=== PATIENT | male | born 1945 | race Caucasian/White ===

== ENCOUNTER 2016-12-27 17:11 | Inpatient (IN) | payer MEDICARE ==
[~2016-12-27 17:11] MED LIST: ISOVUE-370 76%-LOCM 1 ML ONE
[2016-12-27] MEDS ORDERED: Ondansetron HCl/PF 4 MG/2 ML Vial ONE (17:51)
[2016-12-27 18:35] LABS: #Basophils 0.1 thou/uL (0.0-0.2); #Eosinphils 0.2 thou/uL (0.0-0.7); #Lymphocytes 1.1 thou/uL (1.20-3.40); #Monocytes 0.7 thou/uL (0.11-0.59); #Neutrophils 5.2 thou/uL (1.40-6.50); %Basophils 0.8 % (0.0-1.0); %Eosinophils 2.7 % (0.0-10.0); %Lymphocytes 15.2 % (21.0-51.0); %Monocytes 9.1 % (0.0-10.0); Hematocrit 37.7 % (42.0-52.0); Mean Platelet Volume 7.9 fL (7.4-10.4); White Blood Cell (WBC) Count 7.2 thou/uL (4.8-10.8)
[2016-12-27 18:45] LABS: PTT 26.7 SEC (22.9-36.1); Prothrombin Time 13.9 SEC (12.0-14.7)
[2016-12-27 18:53] LABS: Lactic Acid - Sepsis 1.8 mmol/L (0.5-2.2)
--- NOTE | 2016-12-27 18:54 | RAD ---
FOUR VIEWS LEFT ELBOW: History: Fall, pain. Comparison: None. FINDINGS: No obvious joint effusion. No definite fracture. No cortical irregularity. Mild degenerative changes are noted. IMPRESSION: No definite fracture. POS: [facility]
[2016-12-27 19:00] LABS: ALT (SGPT) 17 U/L (8-55); AST (SGOT) 20 U/L (5-34); Alkaline Phosphatase 107 U/L (40-150); Anion Gap 11 mmol/L (10-20); BUN (Urea Nitrogen) 18 mg/dL (8.4-25.7); Bilirubin, Total 0.5 mg/dL (0.2-1.2); CK (CPK) 97 U/L (30-200); Calc. Creatinine Clearance 0 mL/min (70-130); Calcium 8.9 mg/dL (7.8-10.44); Carbon Dioxide 27 mmol/L (23-31); Chloride 106 mmol/L (98-107); Estimated GFR-MDRD 60; Globulin 3.6 g/dL (2.4-3.5); Lipase 43 U/L (8-78); Protein, Total 6.9 g/dL (5.8-8.1)
[2016-12-27 19:03] LABS: Troponin I Less than 0.010 ng/mL (< 0.028)
[2016-12-27 20:21] LABS: Bilirubin Negative (Negative); Blood, Urine Negative (Negative); Glucose, Urine (Dipstick) Negative (Negative); Ketone, Urine Negative (Negative); Nitrite Positive (Negative); Protein, Urine (Dipstick) Negative (Neg-Trace)
[2016-12-27 20:22] LABS: Bacteria/HPF 4+ HPF (None Seen); Hyaline Casts/LPF 7-10 HYALINE CAST LPF (0-3 Hyaline); Squamous Epithelial None Seen HPF (0-3)
--- NOTE | 2016-12-27 20:32 | RAD ---
CHEST TWO VIEWS: History: Status post fall from standing. Syncope. Comparison: 11-07-16 FINDINGS: Portable upright chest demonstrates a stable left sided transvenous pacemaker. There are stable ster notomy wires. Atherosclerosis of the aorta is noted. Normal cardiac silhouette. The pulmonary vessel s and hilum are normal. Costophrenic angles are clear. No masses or consolidation. Chronic changes i nvolving the distal left clavicle. No pneumothorax or osseous abnormalities. IMPRESSION: 1. Atherosclerosis. 2. No acute cardiopulmonary process. POS: [facility]
--- NOTE | 2016-12-27 20:59 | CT ---
NONCONTRAST HEAD CT: History: Fall from standing. Comparison: 08-25-16 Technique: Noncontrast head CT is performed from skull base to skull vertex. FINDINGS: There is a hematoma involving the posterior scalp near the vertex. Calvarium is intact. Adequate aer ation of the sinuses and mastoid air cells. Cavernous carotid atherosclerosis is noted. There is age appropriate atrophy. Cortical escalona white matter differentiation is preserved. Ventricle s and sulci are patent and symmetric. Stable configuration of the ventricular system. Stable hypoden sities with remote lacunar infarct involving the white matter as well as bilateral bibasilar ganglio n. Hyperdensity along the anterior aspect of the falx. Small parafalcine subdural hematoma is present. Small hyperdense focus on the medial right occipital lobe may represent a small hemorrhagic contusio n measuring 0.5 cm. Additional subtle hyperdensity on the cortex is noted. IMPRESSION: 1. Small anterior parafalcine subdural hematoma. 2. Small foci of parenchymal contusions in the right frontal lobe. The largest focus of attenuation measures 0.5 mm. 3. Posterior scalp hematoma. 4. Results of study discussed with Dr. Clarke 12-27-16 at 7:02 p.m. POS: [facility]
--- NOTE | 2016-12-27 21:11 | CT ---
CERVICAL SPINE CT WITHOUT CONTRAST: Comparison: 02-09-16 History: Patient fell from standing. Technique: Noncontrast cervical spine CT is performed in the axial plane. Reformatted images are sub mitted for interpretation. FINDINGS: There is no prevertebral soft tissue swelling. No epidural hematoma. Atherosclerosis of the carotid arteries is noted. Chronic change in lung apices noted. Upper mediastinum is unremarkable. There are varying degrees of central canal stenosis and foraminal narrowing on the basis of degenera tive change. Limited evaluation of the central canal and neural foramina due to technique. There is appropriate alignment of the lateral masses of C1 and C2, as well as the intraarticular fac ets. Odontoid process is intact. Straightening of the normal cervical lordosis is noted. Cervical spine vertebral body heights are ma intained. There is no fracture. There is incomplete segmentation of the C2 and C3 vertebral bodies. Stable degenerative change and stable anterolisthesis when compared to the prior exam. There appears to be fusion of the anterior right 1st and 2nd ribs. IMPRESSION: No cervical spine fracture. POS: [facility]
--- NOTE | 2016-12-27 21:56 | CT ---
CT ANGIOGRAM OF THE CHEST: History: Loss of balance, fall. Comparison: 08-25-16 Technique: CT angiogram of the chest was performed in the axial plane. 3D oblique and coronal reform atted images are submitted for interpretation. FINDINGS: Persistent opacification in the right lower lobe. Currently, the opacity measures 2.7 x 4.6 cm (prev iously measuring 3.3 x 4.5 cm). Additional patchy ground glass and linear opacities are noted. Trach ea and central bronchi are patent. No pneumothorax. There is a nonspecific nodule in the left upper lobe measuring 0.6 x 0.6 cm. No mediastinal mass, lymphadenopathy, or hematoma. Nonspecific right paratracheal lymph nodes. The t horacic aorta and abdominal aorta have an overall normal caliber. No periaortic fat stranding. Heart size is within normal limits. No significant pericardial fluid. Coronary artery calcifications are identified. Visualized upper solid organs are unremarkable. There are degenerative changes of the thoracic spine. There is adequate contrast opacification of the pulmonary arterial systems to the level of the segme ntal arteries. No filling defect to suggest thromboembolism. IMPRESSION: 1. No evidence of pulmonary artery embolism to the level of the segmental arteries. 2. Persistent opacification in the posterior aspect of the right lower lobe. Nonemergent pulmonary c onsultation and possible PET imaging is recommended. There is also a nonspecific 6 mm nodule in the left upper lobe. Code LN. POS: [facility]
[2016-12-27] MEDS ORDERED: Acetaminophen 500 MG TAB PO PRN (22:10)
[2016-12-27] MEDS ORDERED: Ondansetron HCl/PF 4 MG/2 ML Vial IVP PRN (22:11)
[2016-12-27] MEDS ORDERED: Ondansetron ODT 4 MG TAB PO PRN (22:11)
[2016-12-27] MEDS ORDERED: Dextrose 50% Abboject 50 ML SYRINGE SLOW IVP PRN (22:11)
[2016-12-27] MEDS ORDERED: Dextrose 5% in Water 1,000 ML IV PRN (22:11)
[2016-12-27] MEDS ORDERED: levETIRAcetam In NaCl (Iso-Os) 1,000 MG in Premix Bag 1 BAG IVPB SCH ×4 (22:15→23:00)
[2016-12-27] MEDS ORDERED: Labetalol HCl 100 MG/20 ML VIAL SLOW IVP PRN (22:16)
[2016-12-27] MEDS ORDERED: cefTRIAXone\\ROCEPHIN 1 GM in Sodium Chloride 0.9% 100 ML IVPB SCH (23:00)
[2016-12-28 01:07] VITALS: BMI 34.3
--- NOTE | 2016-12-28 03:20 | HP ---
DATE OF ADMISSION: 12/27/2016 ATTENDING PHYSICIAN: Dr. Marco Milner. TRAUMA ACTIVATION: Not applicable. HISTORY OF PRESENT ILLNESS: Mr. Porfirio Huff is a 71-year-old gentleman that presented to [facility] Emergency Room, status post fall. Per patient, he is amnestic of events. Per ER records, the pa tana was walking up some stairs when he lost his balance and fell. There is a question of syncope associated with this fall. Patient reportedly landed on his left side and hit his head. There was evidence of seizure-like activity, but there was no bowel or bladder incontinence. The patient awok e shortly after falling. At that time, he was alert and oriented. He was brought to the [facility] for further evaluation. He was found to have an intracerebral hemorrhage, along wit h a urinalysis suspicious for urinary tract infection. Of note, the patient is currently on a Z-Donavon per his PCP for upper respiratory infection. Neurosurgery was notified and Trauma Service was aske d to admit. Per patient, he has no history of seizure disorder. Upon my evaluation, the patient is alert and oriented x4. His GCS is 15. He has residual left-sided weakness from a past CVA, but no new focal deficits are noted. Patient has a chief complaint of headache. Otherwise, no complaints . ALLERGIES: SULFONAMIDE ANTIBIOTICS and TETRACYCLINE. 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 PAST SURGICAL HISTORY: Significant for CABG, left elbow repair, cholecystectomy, prostatectomy seco ndary to prostate cancer, and skin cancer removal. SOCIAL HISTORY: The patient resides at home with his . He ambulates with the use of a walker. He denies alcohol, tobacco, or illicit drug use. FAMILY HISTORY: Significant for coronary artery disease, multiple family members details unknown. REVIEW OF SYSTEMS: The patient endorses a history of chills, times weeks to months. Vomiting post- fall while in our emergency room, 2 weeks of blurred vision associated with dizziness and presyncope as well as constipation. He denies measured fevers, chest pain, shortness of breath, abdominal melani n, hematuria, dysuria, frequency or urgency, hematochezia or melena, as well as diarrhea. HOME MEDICATIONS: Include buspirone 50 mg b.i.d., gabapentin 300 mg q.i.d., fluoxetine 60 mg p.o. d aily, carvedilol 12.5 mg p.o. b.i.d., folic acid p.o. daily, furosemide 20 mg p.o. b.i.d., risperido ne 1 mg p.o. daily, atorvastatin 80 mg p.o. daily, Avodart 0.5 mg p.o. daily, methocarbamol 500 mg p .o. b.i.d., alfuzosin extended release 10 mg p.o. daily, aspirin 81 mg p.o. daily. PHYSICAL EXAMINATION: VITAL SIGNS: Blood pressure 162/82, pulse 67, respirations 18, O2 saturation 100% on 2 liters. GENERAL: Well-developed, well-nourished male, in no acute distress, resting in bed. HEAD: Normocephalic. He has a frontal contusion as well as a posterior occipital contusion. EYES: Pupils are PERRL. Extraocular movements are intact. NECK: Supple. Trachea is midline. C-collar has been removed and clinically cleared by the ER phys ician. PULMONARY: Atraumatic. Normal work of breathing. Symmetric rise. LUNGS: Lung sounds are diminished, but clear to auscultation bilaterally. CARDIOVASCULAR: Regular rate and rhythm, no obvious murmurs, rubs, or gallops. GASTROINTESTINAL: Soft, nontender, and nondistended. BACK EXAM: Being reported, it is being within normal limits. MUSCULOSKELETAL: Bilateral upper extremities within normal limits. Lower extremities within normal limits. NEUROLOGIC: GCS of 15. There is a very minor left-sided weakness in both extremities. No other fo hebert deficit noted. LABORATORY FINDINGS: WBC 7.2, hemoglobin 12.2, hematocrit 37.7, platelet count 214. INR is 1.1. S odium 140, potassium 3.9, chloride 106, carbon dioxide 27, BUN 18, creatinine 1.20, lactic acid is 1 .8, AST and ALT within normal limits. Troponin is less than 0.010. BNP is 430.5. Prolactin level 76.08. Urinalysis is significant for being positive for nitrites, moderate leukocyte esterase, and greater than 50/too numerous to count wbc's, 4+ bacteria along with 7 to 10 hyalin casts. RADIOGRAPHIC FINDINGS: CTA of the chest and thorax demonstrated no evidence of pulmonary artery emb olism to the level of segmental arteries. There is a persistent opacification in the posterior aspe ct of the right lower lobe along with a 6 mm nodule in the left upper lobe. CT of the C-spine was n egative for acute fracture or dislocation. CT of the brain was significant for small anterior paraf alcine subdural hematoma with small foci of parenchymal contusions in the right frontal lobe, the la rgest of which measures 0.5 mm the posterior scalp hematoma. Chest x-ray with cardiomegaly, no evid ence of acute cardiopulmonary process. There is an evidence of permanent pacemaker in place, elbow x-ray was negative for acute fracture or dislocation. ASSESSMENT: 1. Status post fall. 2. Questionable syncopal event. 3. Possible seizure. 4. Acute traumatic pain. 5. Probable urinary tract infection. 6. History of coronary artery disease. 7. History of arrhythmia, status post permanent pacemaker. 8. History of hypertension. 9. History of chronic kidney disease. 10. History of cerebrovascular accident with residual deficit. PLAN: 1. Admit to Trauma Services. 2. Frequent neuro checks. 3. Neurosurgery has been notified and is currently evaluating the patient. They plan for nonoperat capo management with repeat CT of the head in a.m. 4. N.p.o. for now. 5. Careful pain management given, need to monitor neuro status. 6. Keppra 1000 mg loading dose followed by 500 mg b.i.d. 7. Patient's last urinary tract infection was in 10/2016. At that time, it was enterococcus that w as resistant to both Levaquin and Cipro. We will start IV Rocephin and follow urine cultures. 8. Syncopal workup. 9. Gastritis and DVT prophylaxis as appropriate. 10. Trauma attending notified of admission.
--- NOTE | 2016-12-28 04:08 | CON ---
DATE OF CONSULTATION: 12/27/2016 This is a 50-minute initial patient consult, in which greater than 50% of the exam was spent in coun seling and coordinating the patient's care. The remainder of the exam was spent in review of the prince fajardo's medical record and appropriate imaging studies. CHIEF COMPLAINT: Status post fall with seizure-like activity and a small falcine subdural hematoma and right frontal ICH. HISTORY OF PRESENT ILLNESS: Mr. Huff is a pleasant 71-year-old male who presents to [facility] room after sustaining a fall. Apparently, the patient experienced seizure-like activity, in which he felt dizzy and preceeded to fall striking the back of his head. The patient currently comp lains of a headache in the bilateral parietal regions. He does not typically have headaches. Of no te, the patient does have a pacemaker for atrial fibrillation and was previously on Plavix and aspir in, however, has been off this since his last hospital admission in 10/2016. The patient also has a known prostate cancer, however, states that he has not had this evaluated in the past roughly 2 yea rs. The patient was found to have a UTI which also has caused some transient confusion. The patien whit currently lives at home with his who brought him in today. The patient also has a history of multiple CVAs with some residual left-sided weakness and he does use a cane for ambulation at home. Review of the patient's CT scan today shows a small right falcine subdural hematoma with a very sm all right frontal ICH. PHYSICAL EXAMINATION: The patient is awake, alert, and appropriate. He does appear to either sligh tly slower in his speech or has a slight speech impediment where he has difficulty pronouncing his h ours. His GCS currently is 15. He is able to correctly identify a pen and to determine that its pu rpose is to write and he appropriately defines the definition of an island. He does have residual t [id number] weakness in the left arm and leg, more significant perhaps in the leg than the arm. He currently has no pronator drift. His pupils are equal, round, and reactive bilaterally. He does h ave a scalp hematoma in the parietal region. He has no worrisome tenderness to palpation along the midline of the cervical, thoracic, and lumbar spines. IMPRESSION/DIAGNOSIS: Status post fall with a small right falcine subdural hematoma and small right intracerebral hemorrhage. PLAN: I have discussed the patient's case with Dr. Bernard. Our Trauma colleagues will admit the prince fajardo and Neurosurgery will consult. The patient's INR is currently 1.1 and his platelets are 214. We would like him to remain off any anticoagulants and antiplatelets. As a prophylactic measure an d with presumed seizure-like activity, we have started the patient on Keppra 1000 mg IV now with a m aintenance dose of Keppra 500 mg b.i.d. As the patient has a pacemaker in place, we will obtain a r epeat head CT in the morning with and without contrast to ensure that there is no metastatic disease in the brain. His systolic blood pressure should remain less than 150 and head of bed elevated at 30 degrees. This time, as a prophylactic measure, we have made him n.p.o. However, it is highly un likely that the patient will require any type of neurosurgical intervention. We will continue to fo llow the patient's neurologic exam. Otherwise, he is stable at this time. Please call with any damon ge in the patient's neurologic status.
[2016-12-28 04:55] LABS: #Eosinphils 0.2 thou/uL (0.0-0.7); #Lymphocytes 1.3 thou/uL (1.20-3.40); #Monocytes 0.7 thou/uL (0.11-0.59); #Neutrophils 7.3 thou/uL (1.40-6.50); %Basophils 0.4 % (0.0-1.0); %Eosinophils 2.4 % (0.0-10.0); %Lymphocytes 13.5 % (21.0-51.0); %Monocytes 7.2 % (0.0-10.0); Hematocrit 35.9 % (42.0-52.0); Mean Platelet Volume 8.3 fL (7.4-10.4); Red Blood Cell (RBC) Count 3.72 mill/uL (4.70-6.10); White Blood Cell (WBC) Count 9.6 thou/uL (4.8-10.8)
[2016-12-28 05:31] LABS: Anion Gap 9 mmol/L (10-20); BUN (Urea Nitrogen) 13 mg/dL (8.4-25.7); Calc. Creatinine Clearance 85 mL/min (70-130); Calcium 8.6 mg/dL (7.8-10.44); Carbon Dioxide 28 mmol/L (23-31); Chloride 107 mmol/L (98-107); Estimated GFR-MDRD 66; Magnesium 1.8 mg/dL (1.6-2.6); Phosphorus 2.9 mg/dL (2.3-4.7)
[2016-12-28] MEDS ORDERED: Magnesium Sulfate 3 GM in Sodium Chloride 0.9% 100 ML IVPB SCH (08:45)
[2016-12-28] MEDS ORDERED: FLU VACC TS2017-18 (>65YR) 0.5 ML SYRINGE IM ONE (09:00)
--- NOTE | 2016-12-28 09:09 | PRG ---
DATE OF SERVICE: 12/28/2016 This is a 30 minutes initial hospital visit note in which 30 minutes were spent in review of the staci ging record, evaluation, examination of the patient, formulation of a plan. Greater than 50% time w as spent on counseling on Mr. Porfirio Huff, date of 1945. CHIEF COMPLAINT: Acute subdural hematoma, status post fall with a first time seizure. HISTORY OF PRESENT ILLNESS: I reviewed the notes of my colleague Hunter Cano PA-C, and agree wi th its content. Mr. Huff is a 71-year-old man with a pacemaker. He is not on blood thinners. He has a history of stroke. He had a generalized tonic-clonic seizure by report yesterday and presente d with an elevated prolactin. His family did witness this. Head CT demonstrates a small amount of acute subdural hematoma in the region of the fall and cervical spine CT was negative. We have order ed a CT scan without and with contrast of the brain to evaluate for neoplastic process. Again the p atient cannot have an MRI due to a pacemaker. PHYSICAL EXAMINATION: On exam, the patient is alert and appropriate, follows commands without any f ocal deficits. He does appear a bit tremulous and already loaded him with antiepileptics and he has had no further seizure. IMPRESSION AND PLAN: We will arrange for CT today. I will recommend Neurology consultation given t he seizure. He is on Keppra. DIAGNOSES: 1. Seizure. 2. Acute subdural hematoma. 3. History of stroke. 4. Pacemaker dependent.
--- NOTE | 2016-12-28 09:54 | CT ---
HEAD CT WITH AND WITHOUT CONTRAST: Date: 12/28/16 Reference made to preceding head CT, noncontrast, 12/27/16. INDICATION: Recent fall. Abnormal hyperdensity demonstrated on noncontrast CT. FINDINGS: Precontrast imaging redemonstrates subdural hemorrhage, minimal in volume, along the anterior aspect of the interhemispheric falx. Redemonstration of blush of hyperdensity involving the medial right f rontal lobe and insinuating within medial right frontal sulci. No discernible postcontrast enhanceme nt of significance is seen. Redemonstration of multifocal cavitary lacunar infarctions in bilateral basal ganglia. There is mode rate chronic microvascular ischemic disease with associated ex vacuo dilatation of the ventricular s ystem. Focal prominence of right parietal scalp near the vertex is present. Decreased pneumatization of mastoid air cells, bilaterally, present. IMPRESSION: Redemonstration of extra-axial hyperdensity favoring subdural hemorrhage with component of adjacent mild subarachnoid hemorrhage and/or parenchymal contusion. No discernible enhancement to confirm dann or as the source of clinical concern; however, evaluation is limited by the residual acute hemorrhag e. Therefore, mandatory follow-up upon resolution of acute hemorrhage is necessary to exclude underl clyde pathology. CODE T. POS: [facility]
--- NOTE | 2016-12-28 11:16 | PRG ---
DATE OF SERVICE: 12/28/2016 SUBJECTIVE: Mr. Huff is awake and alert. Barnwell coma scale this morning is E4, V4, M6. He denie s any chest pain, syncope or dyspnea. He complains of headaches, but denies any nausea or vomiting. The patient is 1 day status post apparent fall following a near syncopal episode. He was noted on workup with intrafalcine subdural hematoma. Follow up CT scan of the brain today reveals stable in trafalcine subdural hematoma with no mass effects. The patient has a preexisting history of left up per lobe pulmonary nodule as well as an undetermined right lower lobe lesion. No previous workup of this abnormalities is on record. OBJECTIVE: VITAL SIGNS: This morning includes blood pressure 125/47, pulse 69, respiration rate 18, temperatur e 97.8 degrees Fahrenheit, oxygen saturation is 96% on 2 liters by nasal cannula oxygen. HEENT: Reveals normocephalic and atraumatic. Pupils are equal, round, and reactive to light and ac commodation. The patient has no jugular venous distention noted. HEART: Reveals regular rate and rhythm, no murmurs or gallops auscultated. CHEST: Clear to auscultation bilaterally. Breathing is regular and unlabored. ABDOMEN: Soft and obese with no tenderness to palpation. Liver and spleen are nonpalpable below co stal margins. NEUROLOGIC: Reveals no focal neurologic deficits present. PERTINENT LABORATORY DATA: Today includes CBC with 9600 white blood cells, hemoglobin and hematocri t are stable at 11.4 and 35.9 respectively. Platelet count is stable at 192,000. Metabolic profile : Sodium 140, potassium 4.1, chloride is 107, bicarbonate 28, BUN 13, creatinine is 1.10, glucose i s 94, magnesium 1.8, phosphorus is 2.9. IMPRESSION: 1. Post-admission day #01 status post ground level fall with acute traumatic intrafalcine subdural hematoma. 2. Status post post-traumatic seizure. 3. Left upper lobe pulmonary nodule as well as a right lower lobe pulmonary opacification of undete rmined etiology. PLAN: 1. Neurology consultation regarding the post-traumatic seizure activity. 2. We will obtain an MRI of the brain to rule out any neoplastic lesions as etiology of the seizure activity. We will also obtain a consultation from Pulmonary Medicine in consideration for possible biopsy of the pulmonary lesions. 3. Continue with physical and occupational therapy. 4. Speech Pathology evaluating the patient for swallow and cognition. Diet will be advanced follow ing recommendations from Speech Pathology. The above findings and plan discussed with the patient who indicates understanding of the informatio n given. I have answered his questions.
--- NOTE | 2016-12-28 11:27 | CON ---
DATE OF SERVICE: 12/28/2016 SERVICE: Pulmonary Medicine. HISTORY OF PRESENT ILLNESS: The patient is a 71-year-old white male with past medical history significant for an infiltrate in the right lower lobe that was previously identified in July. 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 He has residual left-sided weakness from these strokes. He has been in and out of the hospital here on multiple occasions. Recently he was discovered to have some degree of oropharyngeal dysphagia. Other way, he was in his usual state of health until roughly 3 days ago. He started feeling off, but is not able to really tell me what that meant. He had an abrupt onset of syncope. He does not remember the fall itself. There was not a mechanical vent so far as he knows. He struck his head on hitting the ground and has a contusion there. He also had a subdural hematoma and small cell foci of an intraparenchymal bruise. Otherwise, he returned to his usual state of health after the event occurred. There is a possibility that he had a seizure-type change. PAST MEDICAL HISTORY: 1. Coronary artery disease. 2. History of stroke. 3. Oropharyngeal dysphasia and left-sided weakness. 4. Chronic diastolic heart failure. 5. Obstructive sleep apnea. 6. COPD. 7. Chronic kidney disease, stage 3. 8. Dyslipidemia. 9. Hypertension. 10. Schizophrenia. 11. Peripheral vascular disease. PAST SURGICAL HISTORY: 1. Coronary artery bypass graft x3 vessels. 2. Cholecystectomy. 3. Prostatectomy. 4. Left elbow surgery repair. ALLERGIES: SULFA and TETRACYCLINE. MEDICATIONS: List of his inpatient medications was reviewed. There are no specific updates made at this time. SOCIAL HISTORY: Negative for current alcohol, tobacco or illicit drug use. He has a prior history of smoking, but quit roughly 10 years ago. He currently lives with his . FAMILY HISTORY: Noncontributory. REVIEW OF SYSTEMS: General, head, ears, eyes, nose, throat, cardiovascular, respiratory, GI, , musculoskeletal, neurologic and skin is negative except as mentioned in the HPI. PHYSICAL EXAMINATION: VITAL SIGNS: Afebrile, pulse 69, blood pressure 125/47, respirations 18, saturation 98% on 2 liters nasal cannula. GENERAL: Patient is awake, alert, in no apparent distress. LUNGS: Excellent air entry. No prolonged expiratory phase or wheezing is evident. HEART: Normal rate, regular. ABDOMEN: Soft, nontender, nondistended, bowel sounds positive. MUSCULOSKELETAL: No cyanosis or clubbing. There is trace pitting in the bilateral lower extremities. LABORATORY DATA: WBC 9.6, hemoglobin 11.4, platelets 192,000. INR 1.1. Basic metabolic profile and liver function studies are unremarkable. Magnesium, phosphorus, and lactate are normal. Lipase is also normal. Prolactin level is 76. IMAGIN. Chest x-ray demonstrates no acute cardiopulmonary abnormality. 2. CT of the brain demonstrates a subdural hematoma. There are also small foci of intraparenchymal hemorrhage/hematoma due to posterior scalp hematoma. 3. CT of the neck demonstrates no acute osseous abnormality or subluxation identified. 4. Elbow x-ray demonstrates no acute osseous abnormality. 5. CTA of the chest demonstrates a very small centrally located pulmonary nodule which is roughly 6 mm. There is also stable infiltrate in the posterior right lower lobe compared to 07/2016. 6. Repeat CT of the brain demonstrates no evidence of tumor on contrasted study , the hemorrhage changes and subdural hematoma are all stable. ASSESSMENT: 1. Subdural hematoma. 2. Syncope. 3. Seizure disorder, new onset. 4. History of stroke. 5. Pulmonary nodule. 6. Pulmonary mass vs infiltrate. PLAN: From my perspective, this infiltrate in the posterior region of the right lower lobe is roughly stable since July. I do think a sampling procedure is currently indicated given the patient's acute presentation. This will be followed up in the outpatient setting where PET scan vs serial monitoring can be considered. Given the location of the lesion, sampling would likely require percutaneous approach. Pulmonary Critical Care will continue to follow for the time being while patient remains inhouse. TRESA
--- NOTE | 2016-12-28 13:56 | RAD ---
EXAM: RIGHT HIP 2 VIEWS: HISTORY: Fall. Pain. COMPARISON: None. FINDINGS: There appears to be contrast in the urinary bladder. Contour of the right femoral head is maintaine d. Joint space is preserved. No fracture. IMPRESSION: No fracture. POS: [facility]
[2016-12-28] MEDS: Amoxicillin/Potassium Clav 500 MG TAB PO SCH (20:01)
[2016-12-29 05:10] LABS: #Basophils 0.1 thou/uL (0.0-0.2); #Eosinphils 0.4 thou/uL (0.0-0.7); #Lymphocytes 1.2 thou/uL (1.20-3.40); #Monocytes 0.7 thou/uL (0.11-0.59); #Neutrophils 6.5 thou/uL (1.40-6.50); %Basophils 0.9 % (0.0-1.0); %Eosinophils 4.4 % (0.0-10.0); %Lymphocytes 13.2 % (21.0-51.0); %Monocytes 8.1 % (0.0-10.0); Hematocrit 37.7 % (42.0-52.0); Mean Platelet Volume 7.9 fL (7.4-10.4); Red Blood Cell (RBC) Count 3.91 mill/uL (4.70-6.10); White Blood Cell (WBC) Count 8.8 thou/uL (4.8-10.8)
[2016-12-29 05:50] LABS: Anion Gap 14 mmol/L (10-20); BUN (Urea Nitrogen) 12 mg/dL (8.4-25.7); Calc. Creatinine Clearance 87 mL/min (70-130); Calcium 9.3 mg/dL (7.8-10.44); Carbon Dioxide 20 mmol/L (23-31); Chloride 108 mmol/L (98-107); Estimated GFR-MDRD 67; Magnesium 1.8 mg/dL (1.6-2.6); Phosphorus 2.5 mg/dL (2.3-4.7)
--- NOTE | 2016-12-29 06:45 | CON ---
DATE OF CONSULTATION: 12/28/2016 REFERRING PROVIDER: Mag Vaughn PA-C. REASON FOR CONSULTATION: Seizure. HISTORY OF PRESENT ILLNESS: Mr. Huff is a pleasant 71-year-old male who has been consult ed for evaluation of seizure-like episode. History is obtained from the patient as well as patient' s dictated H\T\P note. Apparently, the patient has no recollection of the events that took place on yesterday when they brought him to the hospital. He apparently was walking the flight of stairs an d suddenly lost balance and fell down. After he fell, he had an episode of syncope. There was also seizure type of activity noted with frothing at the mouth and jerking like episode; however, there was no loss of bowel or bladder incontinence noted. EMS was called in and he was brought to the [facility]. He was somewhat confused on arrival and he also did not recollect any of these e vents that took place during that time. He had a CT head without contrast done on arrival, which camacho d shown small anterior parafalcine subdural hematoma and parenchymal contusions in the right frontal lobe as well as posterior scalp hematoma. According to the patient, he has no prior history of sei zure disorder, no prior history of heart trauma or [employer] infection. He has no family history of seizu re disorder. He currently denies any headache, chest pain, palpitation, numbness, tingling, weaknes s, or difficulty with balance. He denies lightheadedness or dizziness. PAST MEDICAL HISTORY: Significant for hypertension, coronary artery disease, history of stroke, con gestive heart failure, obstructive sleep apnea, chronic kidney disease, dyslipidemia, peripheral vas cular disease, prostate cancer, and history of schizophrenia. PAST SURGICAL HISTORY: Significant for coronary artery bypass graft, left elbow repair, cholecystec abundio, prostatectomy secondary to prostate cancer and skin cancer removal. SOCIAL HISTORY: He denies smoking, alcohol use, or illicit drug use. He is . FAMILY HISTORY: Significant for coronary artery disease. REVIEW OF SYSTEMS: As mentioned in the HPI, otherwise negative. PHYSICAL EXAMINATION: VITAL SIGNS: Blood pressure of 126/53, pulse of 69, temperature of 98, respirations of 18, O2 sats of 96% on room air. GENERAL: Well-developed, well-nourished male sitting in a chair, in no apparent distress. RESPIRATORY: Clear to auscultation bilaterally. CARDIOVASCULAR: Regular rate and rhythm. NEUROLOGIC: Mental status: The patient is awake, alert, oriented x3. Speech and language: Fluent speech. Cranial nerves: Pupils are 3 mm and reactive. Visual luna are intact. Extraocular mus cles are intact. No nystagmus is noted. Face is symmetric. Tongue and uvula are midline. Motor e xam showed normal tone and bulk with a 5/5 strength in both upper and lower extremities. Sensory: Sensation is intact and symmetric. Deep tendon reflexes, 1-2+ reflexes in both upper and lower extr emities. Babinski: Plantar responses flexion bilaterally. Coordination intact to [id number] er and finger tapping bilaterally. LABORATORY DATA: Reviewed, which included CBC, BMP, urinalysis, which is significant for hemoglobin of 11.4, hematocrit of 35.9. Urinalysis showing positive nitrites, moderate leukocyte esterase, gr eater than 50 to too numerous to count WBCs and 4+ bacteria. IMAGING STUDIES: CT head without contrast was reviewed, the findings are as noted on the HPI section. IMPRESSION: 1. Subdural hematoma. 2. Syncope. 3. Generalized seizures. Mr. Huff is a pleasant 71-year-old male who presented with falling down episode followed by syncope and questionable seizure-like activity. At this time, I would recommend obtaining EEG fo r further evaluation. I agree with continuing him on Keppra 500 mg twice daily. This can be switch ed from IV to oral. The patient can be followed up with my clinic in 4 weeks post-discharge, no fur ther neurological workup needed from my standpoint. Thank you for consultation.
[2016-12-29] MEDS ORDERED: Magnesium Sulfate 3 GM in Sodium Chloride 0.9% 100 ML IVPB SCH (08:30)
--- NOTE | 2016-12-29 09:47 | PRG ---
DATE OF SERVICE: 12/29/2016 SERVICE: Pulmonary Medicine. INTERVAL HISTORY: The patient is doing fine from a cardiovascular and respiratory standpoint. His mentation is much improved today and he has less agitation when answering questions. There were no overnight events. He denies any difficulty breathing. PHYSICAL EXAMINATION: VITAL SIGNS: Afebrile, pulse 70, blood pressure 131/56, respirations 16, saturation 97% on 2 liters nasal cannula. GENERAL: The patient is awake, alert, no apparent distress. LUNGS: Excellent air entry. There is a mildly prolonged expiratory phase with rhonchi that predominately on the right. No wheezing or crackles are appreciated. HEART: Normal rate, regular. ABDOMEN: Soft, nontender, nondistended. Bowel sounds positive. MUSCULOSKELETAL: No cyanosis or clubbing. No pitting in the bilateral lower extremities. NEUROLOGIC: Grossly nonfocal. LABORATORY DATA: WBC 8.8, hemoglobin 12.0, platelets 215,000. Basic metabolic profile, magnesium, and phosphorus all within normal limits. Urine culture is growing Citrobacter. Blood cultures x2 are unremarkable. The Citrobacter is pansensitive. IMAGIN. Hip x-ray demonstrates no acute fracture. 2. Transthoracic echocardiogram demonstrates 40%-45% ejection fraction with diastolic dysfunction. Mild regurgitation of the pulmonary valve and dilation of the left atrium are identified. ASSESSMENT: 1. Chronic hypoxic respiratory failure. 2. Subdural hematoma. 3. Seizure, new onset. 4. Syncope. 5. History of stroke. 6. Pulmonary mass/infiltrate. 7. Pulmonary nodule. PLAN: The patient can follow up with Dr. Guallpa in the outpatient setting within 2-4 weeks to come up with a plan to investigate this infiltrate which is persisting but roughly stable since July. This may include sampling, serial CT chest, and/or PET scan. If biopsy is to be done, the transcutaneous route would be the most reliable. The patient has no further requirement for inpatient Pulmonary or Critical Care opinion. He is stable for transition to the neuro unit. As such, I will sign off. Please call with additional questions or concerns. TRESA
[2016-12-29] MEDS: levETIRAcetam 500 MG TAB PO SCH ×2 (10:12→23:10)
[2016-12-29] MEDS: Amoxicillin/Potassium Clav 500 MG TAB PO SCH ×2 (10:12→23:09)
--- NOTE | 2016-12-29 13:22 | PRG ---
DATE OF SERVICE: 12/29/2016 This is a 15 minute subsequent visit note in which 50 minutes were spent in review the imaging recor d, evaluation and examination of the patient, and formulation of a plan. Greater than 50% of the ti me was spent in counseling on Porfirio Huff. Mr. Huff certainly appears to be doing much better. He follows commands in all 4 extremities. No apparent neurological deficits. He tells me that he feels as if he is doing well. He has had no fu rther clinical seizure activity. I would recommend continued Keppra at 500 mg orally twice daily an d we deferred to our Neurology colleagues regarding the duration of that medication. It is my under standing that Dr. Kraus has seen the patient. I will sign off and arrange for followup with a repeat head CT in 1 month. I should note a head CT without and with contrast yesterday demonstrated no ev idence of neoplasm. I suspect seizure is likely due to his history of strokes. DIAGNOSIS: Acute subdural hematoma.
--- NOTE | 2016-12-29 17:55 | PRG ---
DATE OF SERVICE: 12/29/2016 SUBJECTIVE: Mr. Huff is awake and alert. He reports adequate pain control. He is tolerating diet , having normal bowel and urinary function. He has had no seizure disorders since this admission. X-ray of his right hip was obtained to evaluate the hip pain and this revealed no fractures or dislo cation. OBJECTIVE: VITAL SIGNS: Today includes blood pressure 146/61, pulse is 70, respirations 16, temperature is 98. 2 degrees Fahrenheit, oxygen saturation is 97% on 2 liters of nasal cannula oxygen. HEENT: Reveals normocephalic and atraumatic. HEART: Reveals regular rate and rhythm, no murmurs or gallops auscultated. CHEST: Clear to auscultation bilaterally. Breathing is regular and unlabored. ABDOMEN: Soft, nontender and nondistended. PERTINENT LABORATORY FINDINGS: Today includes CBC with 8800 white blood cells, hemoglobin 12.0, shalonda tocrit is 37.7, platelet count is 215,000. Metabolic profile: Sodium 138, potassium is 4.0, chloride is 108, bicarbonate 20, BUN 12, creatinin e is 1.08 and glucose is 92. Magnesium 1.8, phosphorus 2.5. IMPRESSION: 1. Status post ground-level fall following a syncopal episode. 2. Recent seizure disorder, but neurologically normal and no further seizure activities. 3. Acute hypomagnesemia. 4. Acute hypophosphatemia. PLAN: 1. Correct abnormal electrolytes. 2. The patient has remained hemodynamically and neurologically stable and will be transferred to g eneral floor today. We will continue with serial examinations. 3. We will ask PM\T\R to evaluate the patient in anticipation for discharge to inpatient rehabilita tion.
[2016-12-30] MEDS: levETIRAcetam 500 MG TAB PO SCH ×2 (08:17→20:55)
[2016-12-30] MEDS: Amoxicillin/Potassium Clav 500 MG TAB PO SCH ×2 (08:17→20:55)
--- NOTE | 2016-12-30 10:48 | PRG ---
DATE OF SERVICE: 12/30/2016 SUBJECTIVE: Mr. Huff is awake and alert. He reports no new problems today. He is tolerating a di et, having normal bowel and urinary function. He has had no seizures over the last 48 hours. OBJECTIVE: VITAL SIGNS: Today includes blood pressure 146/58, pulse 64, respirations 18, temperature 97.8 degr ees Fahrenheit, oxygen saturation 96% on 2 liters by nasal cannula oxygen. HEENT: Examination reveals normocephalic and atraumatic. His pupils are equal, round, and reactive to light and accommodation. NECK: He has no jugular venous distention noted. HEART: Reveals regular rate and rhythm, no murmurs or gallops auscultated. LUNGS: Clear to auscultation bilaterally. His breathing is regular and unlabored. ABDOMEN: Soft, nontender, nondistended. NEUROLOGIC: Examination reveals no focal deficits present. IMPRESSION: 1. Status post ground-level fall with traumatic brain injury. 2. Recent seizure activity with no recurrent seizure over the last 48 hours. PLAN: The patient has remained hemodynamically and neurologically stable and will be transferred to general floor where we will continue with serial physical and neurological examination.
[2016-12-31] MEDS: levETIRAcetam 500 MG TAB PO SCH (09:44)
[2016-12-31] MEDS: Amoxicillin/Potassium Clav 500 MG TAB PO SCH (09:44)
[2016-12-31 12:15] VITALS: BP 121/82; TEMP 97.5
--- NOTE | 2017-01-02 11:45 | EKG ---
Test Reason : FALL Blood Pressure : / mmHG Vent. Rate : 063 BPM Atrial Rate : 063 BPM P-R Int : 176 ms QRS Dur : 100 ms QT Int : 460 ms P-R-T Axes : 052 018 139 degrees QTc Int : 470 ms Normal sinus rhythm Inferior infarct , age undetermined Abnormal ECG Confirmed by LISANDRA HAMPTON, JOSÉ LUIS ([id number]), online editor DEVORA OJEDA ([id number]) on 01/02/2017 11:45:05 AM Referred By: LISANDRA Confirmed By:JOSÉ LUIS FRY MD
== END 2016-12-31 13:44 | DRG 83 ==
LOC: ERS 17:11 → IMCU/EMU 21:13 → SURG A 12-30 18:34
PROVIDERS: ADMIT Surgery; ATTEND Surgery
DX: S06.5X9A Traumatic subdural hemorrhage with loss of consciousness of unspecified duration, initial encounter (principal); J96.11 Chronic respiratory failure with hypoxia; I13.0 Hypertensive heart and chronic kidney disease with heart failure and stage 1 through stage 4 chronic kidney disease, or unspecified chronic kidney disease; I50.32 Chronic diastolic (congestive) heart failure; E83.42 Hypomagnesemia; N39.0 Urinary tract infection, site not specified; R40.2142 Coma scale, eyes open, spontaneous, at arrival to emergency department; R40.2362 Coma scale, best motor response, obeys commands, at arrival to emergency department; R40.2242 Coma scale, best verbal response, confused conversation, at arrival to emergency department; Z88.1 Allergy status to other antibiotic agents; Z88.2 Allergy status to sulfonamides; Z88.8 Allergy status to other drugs, medicaments and biological substances; N18.3 Chronic kidney disease, stage 3 (moderate); Z85.46 Personal history of malignant neoplasm of prostate; Z95.1 Presence of aortocoronary bypass graft; Z95.0 Presence of cardiac pacemaker; G89.11 Acute pain due to trauma; E83.39 Other disorders of phosphorus metabolism; G40.909 Epilepsy, unspecified, not intractable, without status epilepticus; R91.1 Solitary pulmonary nodule; R91.8 Other nonspecific abnormal finding of lung field; S00.03XA Contusion of scalp, initial encounter; J44.9 Chronic obstructive pulmonary disease, unspecified
CPT/HCPCS: 36415; 51701; 70450; 70470; 71010; 71275; 72125; 80048; 80053; 81003; 81015; 82553; 83605; 83690; 83735; 83880; 84100; 84146; 84484; 85025; 85379; 85610; 85730; 87040; 87077; 87086; 87186; 93005; 93306; 95816; 95819; 96361; 96365; 96366; 96375; G0390; G8978-GP-CN; G8979-GP-CK; G8987-GO-CM; G8988-GO-CK; G8996-GN-CJ; G8997-GN-CI; J0360; J1953; J1956; J2405; J3475; J7050

== ENCOUNTER 2017-01-15 19:23 | Inpatient (IN) | payer MEDICARE, OTHER ==
[2017-01-15 20:33] LABS: #Basophils 0.1 thou/uL (0.0-0.2); #Eosinphils 0.4 thou/uL (0.0-0.7); #Lymphocytes 0.9 thou/uL (1.20-3.40); #Monocytes 0.8 thou/uL (0.11-0.59); #Neutrophils 5.4 thou/uL (1.40-6.50); %Basophils 0.8 % (0.0-1.0); %Eosinophils 5.3 % (0.0-10.0); %Lymphocytes 12.3 % (21.0-51.0); Hematocrit 38.7 % (42.0-52.0); Mean Platelet Volume 8.3 fL (7.4-10.4); Red Blood Cell (RBC) Count 4.08 mill/uL (4.70-6.10); White Blood Cell (WBC) Count 7.6 thou/uL (4.8-10.8)
[2017-01-15 20:40] LABS: PTT 29.3 SEC (22.9-36.1); Prothrombin Time 13.7 SEC (12.0-14.7)
[2017-01-15 20:58] LABS: ALT (SGPT) 19 U/L (8-55); AST (SGOT) 20 U/L (5-34); Alkaline Phosphatase 138 U/L (40-150); Anion Gap 16 mmol/L (10-20); BUN (Urea Nitrogen) 26 mg/dL (8.4-25.7); Bilirubin, Total 0.5 mg/dL (0.2-1.2); CK (CPK) 53 U/L (30-200); Calc. Creatinine Clearance 0 mL/min (70-130); Calcium 9.8 mg/dL (7.8-10.44); Carbon Dioxide 25 mmol/L (23-31); Chloride 105 mmol/L (98-107); Estimated GFR-MDRD 47; Globulin 4.1 g/dL (2.4-3.5); Protein, Total 7.7 g/dL (5.8-8.1)
[2017-01-15 21:01] LABS: Troponin I Less than 0.010 ng/mL (< 0.028)
[2017-01-15 21:13] LABS: Lactic Acid - Sepsis 1.4 mmol/L (0.5-2.2)
--- NOTE | 2017-01-15 22:25 | RAD ---
PORTABLE CHEST: 01/15/17 COMPARISON: 12/27/16 study. HISTORY: Cough. Heart size appears slightly enlarged. Postop sternotomy change and pacemaker are noted. The lungs s how chronic appearing change. No confluent infiltrative process. IMPRESSION: Cardiomegaly with chronic appearing lung change. POS: [facility]
--- NOTE | 2017-01-15 23:12 | CT ---
CT OF BRAIN PERFORMED WITHOUT CONTRAST ENHANCEMENT: 01/15/17 COMPARISON: 12/27/16 study. HISTORY: Lower extremity weakness. There is generalized ventricular and sulcal prominence. Decreased attenuation to the periventricular white matter. This is consistent with some chronic white matter change. There is no signs of intrac erebral hemorrhage or extra-axial fluid collections. The parafalcine subdural hematoma has resolved. IMPRESSION: Atrophy of chronic white matter change. No acute intracranial abnormalities. POS: [facility]
--- NOTE | 2017-01-15 23:55 | CT ---
CT ABDOMEN AND PELVIS PERFORMED WITH CONTRAST ENHANCEMENT: 01/15/17 HISTORY: Abdominal pain. The lung bases show slightly more focal area of consolidation in the right base with what appears to be somewhat loculated fluid in this area. If there is any reason to suspect pulmonary embolus, then a CT angio of the chest would be recommended. This has some features similar to a Solo's hump. The liver, spleen, and pancreas regions appear unremarkable. The gallbladder has been removed. The right and left adrenal glands and right and left kidneys are normal in size. Hypodensity involvi ng the left kidney is statistically most likely a cyst. There is cortical thinning involving both ki dneys. There is no significant periaortic or mesenteric adenopathy. There is a 3.4 cm infrarenal abdominal aortic aneurysm present. CT OF PELVIS PERFORMED WITH CONTRAST ENHANCEMENT: There is an inguinal hernia which contains nondilated sigmoid colon. There is a tiny fat containing paraumbilical hernia. The appendix region appears unremarkable. There is what appears to be some sut ure material in the terminal ileum region. The cecum itself appears to be directed more cephalad. IMPRESSION: 1. Focal area of pleural based consolidation right lung base as discussed above. 2. Nonobstructed left inguinal hernia. 3. 3.4 cm infrarenal abdominal aortic aneurysm. Other findings as noted above. 4. Diffuse bony demineralization. There appears to be some loss of vertebral body height of vania e of the lumbar and lower thoracic vertebral bodies. POS: [facility]
[2017-01-16 00:45] LABS: Bilirubin Negative (Negative); Blood, Urine Negative (Negative); Glucose, Urine (Dipstick) Negative (Negative); Ketone, Urine Negative (Negative); Nitrite Negative (Negative); Protein, Urine (Dipstick) Negative (Neg-Trace)
[2017-01-16 02:55] LABS: Troponin I 0.014 ng/mL (< 0.028)
[2017-01-16 05:52] LABS: Troponin I 0.013 ng/mL (< 0.028)
[2017-01-16] MEDS ORDERED: Ondansetron HCl/PF 4 MG/2 ML Vial IVP PRN ×2 (08:07→10:51)
[2017-01-16] MEDS ORDERED: Acetaminophen 325 MG TAB PO PRN (08:07)
[2017-01-16] MEDS ORDERED: Ondansetron ODT 4 MG TAB SL PRN (08:07)
[2017-01-16] MEDS ORDERED: Sodium Chloride 0.45% 1,000 ML IV SCH (08:15)
[2017-01-16 09:06] LABS: Troponin I 0.018 ng/mL (< 0.028)
[2017-01-16] MEDS ORDERED: Ondansetron ODT 4 MG TAB PO PRN (10:51)
[2017-01-16] MEDS ORDERED: hydrALAZINE 20 MG/ML VIAL SLOW IVP PRN (10:51)
[2017-01-16] MEDS ORDERED: Acetaminophen 500 MG TAB PO PRN (10:51)
[2017-01-16] MEDS: Sodium Chloride 0.9% 1,000 ML IV SCH (11:54)
--- NOTE | 2017-01-16 12:36 | ULT ---
CAROTID ULTRASOUND WITH CHISHOLM SCALE AND DOPPLER DUPLEX COLOR FLOW IMAGING SPECTRAL ANALYSIS PERFORMED: CLINICAL INDICATION: CVA. FINDINGS: There is mild scattered atherosclerotic calcification bilaterally of the carotid arteries with intim al thickening. PEAK SYSTOLIC VELOCITY (CM/S): Right CCA 103 Left CCA 118 Right ICA 87 Left ICA 95 There is antegrade flow within the visualized bilateral vertebral arteries. IMPRESSION: 1. No hemodynamically significant stenosis of the right internal carotid artery. 2. No hemodynamically significant stenosis of the left internal carotid artery. POS: [facility]
--- NOTE | 2017-01-16 15:01 | HP ---
DATE OF ADMISSION: 01/16/2017 PRIMARY CARE PROVIDER: Dr. Siva Reyna. CHIEF COMPLAINT: General weakness and inability to move the feet. HISTORY OF PRESENT ILLNESS: This is a 71-year-old male who presented to [facility] by EMS transport after developing increasing weakness and inability to move his fee t or walk at home. The patient states he had been using a walker to ambulate at home after a recent admission to [facility] and rehabilitation status post mechanical fall with small subdural he matoma and general deconditioning. The patient was admitted to [facility] in the early part of 12/2016 status post mechanical fall and questionable seizure-like activity with c losed head injury. The patient was given general supportive measures during the admission without s pecific surgical intervention required. The patient was placed on Keppra 500 mg b.i.d. after concer n for possible seizure-like activity. The patient was evaluated by the Neurology Service during thi s admission with recommendations for supportive management, ongoing physical and occupational therap y as well as Keppra. The patient apparently returned home and has been receiving Home Health Servic es approximately 3 times per week including physical therapy. The patient states he has been using a rolling walker for ambulation, but it remains weak and requiring assistance with activities of elizabeth ly living. Patient states that after using his rolling walker to get into his home, he was unable t o move his lower extremities with any specific coordination. The patient also noted difficulty with speech with garbled words. The patient was also noted with generalized weakness and shortness of b reath. Due to the constellation of symptoms, the patient was brought to the emergency room for eval uation. The patient denied any subsequent falls or head injury since the initial admission in early 12/2016. The patient denied any specific fever, chills or dysuria. The patient underwent general evaluation in the emergency room including CT imaging of the brain showing no acute intracranial pro cess. Evidence of resolution of the previous subdural hematoma noted. The patient also underwent e valuation including CT of the abdomen and pelvis after some complaints of abdominal pain and discomf ort. The patient was noted with consolidation of the right lung base concerning for pneumonia/infil trate. No other acute process was identified in the intraabdominal space. The patient received IV Levaquin 750 mg x1 dose in addition to intravenous normal saline x1 liter. The patient was transfer red to the Stroke Unit for further evaluation. PAST MEDICAL HISTORY: 1. Recurrent falls with closed head injury on 12/2016. 2. Coronary artery disease. 3. 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 4. Chronic congestive heart failure with ejection fraction of 40%-45%. 5. Obstructive sleep apnea with home CPAP. 6. Chronic kidney disease stage 2-3. 7. Dyslipidemia. 8. History of schizophrenia. 9. Peripheral vascular disease. 10. History of prostate cancer. 11. Status post subdural hematoma, status post mechanical fall with closed head injury. 12. History of pneumonia in 07/2016. 13. Chronic deconditioning. PAST SURGICAL HISTORY: 1. Status post coronary artery bypass grafting. 2. Status post left elbow repair. 3. Status post cholecystectomy. 4. Status post prostatectomy. 5. Status post skin cancer removal. CURRENT MEDICATIONS: 1. Lipitor 80 mg p.o. at bedtime. 2. Carvedilol 12.5 mg p.o. b.i.d. 3. Prozac 60 mg p.o. daily. 4. Finasteride 5 mg one tablet p.o. daily. 5. Lasix 20 mg 1 tablet p.o. daily. 6. Gabapentin 300 mg p.o. b.i.d. 7. Keppra 500 mg p.o. b.i.d. 8. Lisinopril 5 mg p.o. daily. 9. Flomax 0.4 mg p.o. b.i.d. 10. BuSpar 5 mg p.o. b.i.d. 11. Risperdal 1 mg p.o. at bedtime. ALLERGIES: SULFA and TETRACYCLINE. FAMILY HISTORY: Coronary artery disease in multiple family members. SOCIAL HISTORY: Patient is , residing in the [place], [place] area. No current alcohol, tobacco or illicit drug use. Remote history of tobacco use. [employer] , receiving health care through [facility]. Ambulates with a rolling walker with history of repetitive falls. REVIEW OF SYSTEMS: The following complete review of systems was negative, unless otherwise mentione d in the HPI or below: Constitutional: Weight loss or gain, ability to conduct usual activities. Skin: Rash, itching. Eyes: Double vision, pain. ENT/Mouth: Nose bleeding, neck stiffness, pain, tenderness. Cardiovascular: Palpitations, dyspnea on exertion, orthopnea. Respiratory: Shortness of breath, wheezing, cough, hemoptysis, fever or night sweats. Gastrointestinal: Poor appetite, abdominal pain, heartburn, nausea, vomiting, constipation, or diar william. Genitourinary: Urgency, frequency, dysuria, nocturia. Musculoskeletal: Pain, swelling. Neurologic/Psychiatric: Anxiety, depression. Allergy/Immunologic: Skin rash, bleeding tendency. Otherwise negative except as stated per HPI. PHYSICAL EXAMINATION: VITAL SIGNS: Currently, blood pressure 140/67, pulse 67, respiratory rate 16, temperature 97.7 degr ees Fahrenheit, and O2 saturation 92% on room air. GENERAL APPEARANCE: This is a 71-year-old male, alert and oriented x3, pleasant, in no ac renetta distress. HEENT: Pupils are equal, round, and reactive to light and accommodation. Extraocular muscles are i ntact. No scleral icterus, no conjunctival injection. Nares patent. OP is clear. Teeth in fair r epair. Left facial asymmetry noted. NECK: Supple, no cervical adenopathy, no thyromegaly, no carotid bruits, no JVD appreciated. Cervi hebert spine with full active and passive range of motion. No meningeal signs appreciated. CHEST: Diminished breath sounds in the bases bilaterally. CARDIOVASCULAR: S1 and S2 with 1/6 systolic ejection murmur in the left upper sternal border. ABDOMEN: Obese, soft, nontender, and nondistended. Bowel sounds are positive in all four quadrants . There is no hepatosplenomegaly, no abdominal bruits, no rebound or guarding appreciated. EXTREMITIES: Warm and dry with fair turgor. No clubbing, cyanosis or asymmetric edema appreciated. Pulses palpable distally at the dorsalis pedis, posterior tibial, and popliteal arteries bilateral ly. Capillary refill less than 2 seconds. NEUROLOGIC: Left facial asymmetry. Expressive aphasia. Muscle strength 3-4/5 in the upper extremi ties, 2/5 in the lower extremities. Patient not observed ambulatory during this exam. PERTINENT LABORATORY DATA AND X-RAY FINDINGS: Sodium 141, potassium 4.5, chloride 105, CO2 25, BUN 26, creatinine 1.47 with estimated GFR of 47, glucose 84, lactic acid level 1.4, magnesium 2.0, and calcium 9.8. LFTs within normal limits. BNP 301, previously noted 431 on 12/27/2016. Lipase 49. TSH 1.02. CBC showed white blood cell count of 7.6, hemoglobin 13, hematocrit 39, MCV 95, platelet count 180. Urinalysis shows specific gravity 1.053, otherwise negative. Blood cultures x2 from showed no growth to date. Portable chest x-ray dated 01/15/2017 showed cardiomegaly with ch ronic lung changes. CT of the brain without contrast dated 01/15/2017 showed chronic ischemic white matter changes without acute process. Parafalcine subdural hematoma, resolved. CT of the abdomen and pelvis dated 01/15/2017 showed consolidation in the right lung base. Nonobstructive left inguin al hernia. A 3.4 cm infrarenal abdominal aortic aneurysm, stable. EKG dated 01/15/2017 by my inter pretation shows sinus mechanism with heart rates in the 60s. Attenuated R waves noted in the latera l precordial leads. Normal axis. No acute ST-T wave changes appreciated. ASSESSMENT AND PLAN: 1. Question of ischemic cerebrovascular accident versus transient ischemic attack. The patient lisset l be admitted to the Stroke Unit. We will continue general stroke protocol. MRI of the brain unabl e to be obtained due to pacemaker placement. We will consult Neurology Service for any further nevaeh mmendations. Continue aspirin 325 mg daily with additional Lipitor 80 mg p.o. at bedtime. Check ca rotid Doppler study. Recent 2D transthoracic echocardiogram performed 12/29/2016 showed ejection fr action of 40%-45% with mild mitral regurgitation and diastolic dysfunction. Obtain PT, OT, and spee ch therapy evaluation. 2. Dysarthria. Suspect chronic component in addition to potential acute component. See #1 above. 3. Question of right lower lobe pneumonia. No specific leukocytosis or fever documented. We will continue empiric antibiotic coverage with Levaquin 500 mg IV q.24 hours. General pulmonary supporti ve measures. Consider incentive spirometer. 4. Acute kidney injury secondary to dehydration. We will continue intravenous normal saline at 75 mL per hour. Avoid nephrotoxic agents and contrast media. Repeat creatinine in the a.m. 5. History of falls, status post closed head injury with subdural hematoma. Stable currently. No current evidence of persistent subdural hematoma by CT imaging of the brain. PT and OT evaluation. 6. Acute kidney injury on chronic kidney disease stage 2-3. We will continue intravenous normal sa line at 75 mL per hour. 7. Deconditioning. PT, OT evaluation. Fall risk precautions. 8. Prophylaxis. Sequential compression devices while in bed. Pepcid 20 mg p.o. b.i.d. 9. Code status is FULL. Surrogate medical decision maker is patient's spouse. We will obtain pall iative care consultation due to multiple comorbid status.
[2017-01-16] MEDS ORDERED: Atorvastatin Calcium 40 MG TAB PO SCH (21:00)
[2017-01-16] MEDS: Famotidine 20 MG TAB PO SCH (22:01)
[2017-01-16] MEDS: risperiDONE 1 MG TAB PO SCH (22:02)
[2017-01-16] MEDS: levETIRAcetam 500 MG TAB PO SCH (22:02)
[2017-01-16] MEDS: Tamsulosin HCl 0.4 MG CAP PO SCH (22:02)
[2017-01-16] MEDS: Atorvastatin Calcium 40 MG TAB PO SCH (22:02)
[2017-01-16] MEDS: busPIRone HCl 5 MG TAB PO SCH (22:03)
[2017-01-16] MEDS: Gabapentin 300 MG CAP PO SCH (22:03)
[2017-01-16] MEDS: Carvedilol 6.25 MG TAB PO SCH (22:03)
--- NOTE | 2017-01-16 22:55 | CON ---
DATE OF CONSULTATION: 01/16/2017 REFERRING PHYSICIAN: Hospitalist Service. Mr. Huff is a 71-year-old man who was recently seen by Neurology and thought to have suffered a sei zure. He started on Keppra. He had subdural hematoma secondary to trauma. He went to rehab and th en on to home; however, he has been getting around with the use of a walker. He reports that he fel t like he could not get his legs to move and his son call for help. He was brought to the hospital for evaluation. CT of the brain did not show any acute changes. Carotid ultrasound did not show an y stenosis. He has had a documented blood pressure 110/50 on lying down. His exam at this point is nonfocal. He moves a bit slowly, but I do not see any asymmetries to suggest a new stroke. I am a bit suspicious that he might have some orthostatic hypotension this making difficult for him to wal k. I would suggest that he check orthostatic blood pressures and have physical therapy to assess hi s gait.
[2017-01-17] MEDS: Sodium Chloride 0.9% 1,000 ML IV SCH (01:51)
[2017-01-17 05:18] LABS: Anion Gap 9 mmol/L (10-20); BUN (Urea Nitrogen) 14 mg/dL (8.4-25.7); Calc. Creatinine Clearance 86 mL/min (70-130); Calcium 9.1 mg/dL (7.8-10.44); Carbon Dioxide 27 mmol/L (23-31); Chloride 107 mmol/L (98-107); Cholesterol 125 mg/dl (< 200 Desired); Estimated GFR-MDRD 68; LDL Cholesterol, Calculated 71 mg/dL
[2017-01-17 05:30] LABS: Hematocrit 34.1 % (42.0-52.0); Mean Platelet Volume 8.2 fL (7.4-10.4); Neutrophil 63 % (42-75); Red Blood Cell (RBC) Count 3.58 mill/uL (4.70-6.10); White Blood Cell (WBC) Count 6.2 thou/uL (4.8-10.8)
[2017-01-17] MEDS: Finasteride 5 MG TAB PO SCH (08:15)
[2017-01-17] MEDS: Carvedilol 6.25 MG TAB PO SCH ×2 (08:16→20:11)
[2017-01-17] MEDS: FLUoxetine HCl 20 MG CAP PO SCH (08:19)
[2017-01-17] MEDS: Gabapentin 300 MG CAP PO SCH ×2 (08:20→20:15)
[2017-01-17] MEDS: Famotidine 20 MG TAB PO SCH ×2 (08:20→20:11)
[2017-01-17] MEDS: Tamsulosin HCl 0.4 MG CAP PO SCH ×2 (08:20→20:12)
[2017-01-17] MEDS: levETIRAcetam 500 MG TAB PO SCH ×2 (08:20→20:11)
[2017-01-17] MEDS: busPIRone HCl 5 MG TAB PO SCH ×2 (08:20→20:10)
[2017-01-17] MEDS: Aspirin 325 mg Enteric Coated Tablet PO SCH (08:20)
--- NOTE | 2017-01-17 12:04 | PDOC.PN ---
- Subjective Encounter Start Date: 01/17/17 Encounter Start Time: 12:03 Patient seen and examined. No new complaints. No overnight events. very sleepy and tired today. had PT this am. No fever or chills. weakness better. - Objective Resuscitation Status: Resuscitation Status FULL:Full Resuscitation MAR Reviewed: Yes Vital Signs & Weight: Vital Signs (12 hours) Temp Pulse Resp BP BP Pulse Ox 01/17/17 08:16 159/60 H 01/17/17 08:10 97.7 F 61 20 01/17/17 07:38 97.7 F 61 20 135/54 L 97 01/17/17 04:00 97.5 F L 60 18 137/62 94 L Weight Weight 214 lb 3.2 oz I&O: 01/16/17 01/17/17 01/18/17 06:59 06:59 06:59 Output Total 950 Balance -950 Result Diagrams: 01/17/17 04:26 01/17/17 04:26 Phys Exam - Physical Examination Constitutional: NAD HEENT: sclera anicteric Neck: supple Respiratory: no wheezing, no rales Cardiovascular: RRR Gastrointestinal: soft Musculoskeletal: no edema Neurological: non-focal Psychiatric: normal affect, A&O x 3 Skin: no rash Dx/Plan (1) BPH (benign prostatic hyperplasia) Code(s): N40.0 - BENIGN PROSTATIC HYPERPLASIA WITHOUT LOWER URINRY TRACT SYMP Status: Chronic (2) RAPHAEL (acute kidney injury) Code(s): N17.9 - ACUTE KIDNEY FAILURE, UNSPECIFIED Status: Acute (3) Altered mental status Code(s): R41.82 - ALTERED MENTAL STATUS, UNSPECIFIED Status: Acute (4) Fall Code(s): W19.XXXA - UNSPECIFIED FALL, INITIAL ENCOUNTER Status: Acute (5) TIA (transient ischemic attack) Status: Acute (6) CAD (coronary artery disease) Code(s): I25.10 - ATHSCL HEART DISEASE OF [place] CORONARY ARTERY W/O ANG PCTRS Status: Chronic Qualifiers: (7) CKD (chronic kidney disease), stage III Code(s): N18.3 - CHRONIC KIDNEY DISEASE, STAGE 3 (MODERATE) Status: Chronic (8) HLD (hyperlipidemia) Code(s): E78.5 - HYPERLIPIDEMIA, UNSPECIFIED Status: Chronic Qualifiers: (9) HTN (hypertension) Code(s): I10 - ESSENTIAL (PRIMARY) HYPERTENSION Status: Chronic Qualifiers: (10) Pneumonia Code(s): J18.9 - PNEUMONIA, UNSPECIFIED ORGANISM Status: Acute - Plan cont current plan of care, continue antibiotics, PT/OT, DVT proph w/SCDs * . continue levaquin. will stop IV fluids continue PT f/u with neuro recs. AM labs.
[2017-01-17 12:48] LABS: ALT (SGPT) 17 U/L (8-55); AST (SGOT) 24 U/L (5-34); Alkaline Phosphatase 107 U/L (40-150); Anion Gap 9 mmol/L (10-20); BUN (Urea Nitrogen) 13 mg/dL (8.4-25.7); Bilirubin, Total 0.4 mg/dL (0.2-1.2); Calc. Creatinine Clearance 85 mL/min (70-130); Calcium 9.2 mg/dL (7.8-10.44); Carbon Dioxide 26 mmol/L (23-31); Chloride 108 mmol/L (98-107); Estimated GFR-MDRD 67; Globulin 3.5 g/dL (2.4-3.5); Protein, Total 6.5 g/dL (5.8-8.1)
--- NOTE | 2017-01-17 12:56 | CT ---
HEAD CT NONCONTRAST: COMPARISON: 01/15/17. INDICATION: Drowsiness. FINDINGS: There is multifocal white matter hypoattenuation again demonstrated compatible with moderate chronic microvascular ischemic disease with superimposed remote lacunar infarctions of each basal ganglia a gain seen. No intracranial hemorrhage, mass effect, or midline shift. Redemonstration of prominent ventricular system. There is scattered paranasal sinus mucosal thickening. IMPRESSION: 1. Redemonstration of multifocal white matter hypoattenuation and superimposed remote cavitary lacu robbie infarctions. 2. No acute intracranial hemorrhage or mass effect. POS: KRISTEN
[2017-01-17 13:08] LABS: Oxyhemoglobin 94.1 % (94.0-97.0)
[2017-01-17 13:09] LABS: Mode ROOM AIR; Modified Allen's Test POSITIVE; Sodium 142 mmol/L (135-148)
[2017-01-17] MEDS: Atorvastatin Calcium 40 MG TAB PO SCH (20:10)
[2017-01-17] MEDS: risperiDONE 1 MG TAB PO SCH (20:12)
[2017-01-17] MEDS ORDERED: risperiDONE 1 MG TAB PO SCH (21:00)
[2017-01-18 05:41] LABS: Anion Gap 8 mmol/L (10-20); BUN (Urea Nitrogen) 12 mg/dL (8.4-25.7); Calc. Creatinine Clearance 84 mL/min (70-130); Carbon Dioxide 28 mmol/L (23-31); Chloride 107 mmol/L (98-107); Estimated GFR-MDRD 67
[2017-01-18 12:15] VITALS: BMI 30.2
--- NOTE | 2017-01-18 12:46 | PDOC.PN ---
- Subjective Encounter Start Date: 01/18/17 Encounter Start Time: 12:43 Patient seen and examined. No new complaints. No overnight events. more awake this afternoon. at bedside. was sleepy this am. - Objective Resuscitation Status: Resuscitation Status FULL:Full Resuscitation MAR Reviewed: Yes Vital Signs & Weight: Vital Signs (12 hours) Temp Pulse Pulse Resp BP BP BP 01/18/17 08:53 58 L 138/58 L 01/18/17 08:00 97.8 F 61 20 01/18/17 07:26 97.8 F 61 20 141/63 H 01/18/17 04:32 98.4 F 60 20 141/57 H Pulse Ox 01/18/17 08:53 01/18/17 08:00 93 L 01/18/17 07:26 93 L 01/18/17 04:32 94 L Weight Admit Weight 214 lb 3.2 oz Weight 210 lb 14.4 oz I&O: 01/17/17 01/18/17 01/19/17 06:59 06:59 06:59 Intake Total 720 Output Total 950 Balance -950 720 Result Diagrams: 01/17/17 04:26 01/18/17 05:09 Additional Labs: Accuchecks 01/18/17 09:11 POC Glucose 73 Phys Exam - Physical Examination Constitutional: NAD HEENT: sclera anicteric Neck: supple Respiratory: no wheezing, no rales Cardiovascular: RRR Gastrointestinal: soft Musculoskeletal: no edema Neurological: non-focal Psychiatric: normal affect, A&O x 3 Skin: no rash Dx/Plan (1) BPH (benign prostatic hyperplasia) Code(s): N40.0 - BENIGN PROSTATIC HYPERPLASIA WITHOUT LOWER URINRY TRACT SYMP Status: Chronic (2) RAPHAEL (acute kidney injury) Code(s): N17.9 - ACUTE KIDNEY FAILURE, UNSPECIFIED Status: Acute (3) Altered mental status Code(s): R41.82 - ALTERED MENTAL STATUS, UNSPECIFIED Status: Acute (4) Fall Code(s): W19.XXXA - UNSPECIFIED FALL, INITIAL ENCOUNTER Status: Acute (5) TIA (transient ischemic attack) Status: Acute (6) CAD (coronary artery disease) Code(s): I25.10 - ATHSCL HEART DISEASE OF [place] CORONARY ARTERY W/O ANG PCTRS Status: Chronic Qualifiers: (7) CKD (chronic kidney disease), stage III Code(s): N18.3 - CHRONIC KIDNEY DISEASE, STAGE 3 (MODERATE) Status: Chronic (8) HLD (hyperlipidemia) Code(s): E78.5 - HYPERLIPIDEMIA, UNSPECIFIED Status: Chronic Qualifiers: (9) HTN (hypertension) Code(s): I10 - ESSENTIAL (PRIMARY) HYPERTENSION Status: Chronic Qualifiers: (10) Pneumonia Code(s): J18.9 - PNEUMONIA, UNSPECIFIED ORGANISM Status: Acute - Plan cont current plan of care, plan discussed w/ family, continue antibiotics, PT/OT , social research assistant, DVT proph w/SCDs * . AMS - ? related to neuro meds which was recently increased per . will reconsult neuro to revisit neuro meds. Repeat CT with no stroke continue abx for pna continue PT Rehab screening and DC planning per CM. AM labs. Advised family to bring CPAP maching tonight to use with O2 RT orders placed.
--- NOTE | 2017-01-18 13:44 | PQF ---
CLINICAL DOCUMENTATION IMPROVEMENT CLARIFICATION FORM: ICD-10 Updated PLEASE DO AN ADDENDUM TO THE PROGRESS NOTE WITH ANY DOCUMENTATION UPDATES OR ADDITIONS AND CARRY THROUGH TO DC SUMMARY. THANK YOU. DATE: 01/18/17 ATTN: Dr. Delgadillo Please exercise your independent, professional judgment in responding to the clarification form. Clinical indicators are provided on the bottom of this form for your review Please check appropriate box(s): [ ] Aspiration Pneumonia [ ] Empirically treating Gram Negative Pneumonia [ ] Empirically treating Anaerobic Pneumonia [ ] Simple Pneumonia (community acquired - nosocomial) [ ] Pneumonia of unknown etiology [ ] Other diagnosis [ ] Unable to determine For continuity of documentation, please document condition throughout progress notes and discharge summary. Thank You. CLINICAL INDICATORS - SIGNS / SYMPTOMS / LABS H&P: PT WAS NOTED W/ CONSOLIDATION OF THE R LUNG BASE CONCERNING FOR PNEUMONIA / INFILTRATE. PN 01/17-: PNEUMONIA. ACUTE SPEECH ASSESS. 01/16: SWALLOWING: MILD-MODERATE DYSPHAGIA PRESENT D/T LACK OF DENTITION & PRIOR DEFICITS. RISKS: H&P: PT WAS ADMITTED TO [facility] IN THE EARLY PART OF S/P MECH. FALL & QUESTIONABLE SZ-LIKE ACTIVITY W/ [facility]. HX OF CAD, CVA W/ PRIOR DYSPHASIA & L SIDED WEAKNESS. CHRONIC CHF. CKD. TREATMENT: CPOE 01/16: LEVAQUIN 500 MG IV Q 24 HR (This form is maintained as a part of the permanent medical record) 2014 [employer]. All Rights Reserved Wanda Lucas RN, BSN [email or web address] Office: [phone] [facility]
[2017-01-18] MEDS: Aspirin 325 mg Enteric Coated Tablet PO SCH (14:32)
[2017-01-18] MEDS: busPIRone HCl 5 MG TAB PO SCH ×2 (14:33→20:16)
[2017-01-18] MEDS: Famotidine 20 MG TAB PO SCH ×2 (14:33→20:17)
[2017-01-18] MEDS: Carvedilol 6.25 MG TAB PO SCH ×2 (14:33→20:18)
[2017-01-18] MEDS: FLUoxetine HCl 20 MG CAP PO SCH (14:34)
[2017-01-18] MEDS: Finasteride 5 MG TAB PO SCH (14:34)
[2017-01-18] MEDS: levETIRAcetam 500 MG TAB PO SCH ×2 (14:35→20:18)
[2017-01-18] MEDS: Tamsulosin HCl 0.4 MG CAP PO SCH ×2 (14:35→20:18)
[2017-01-18] MEDS: Gabapentin 300 MG CAP PO SCH ×2 (14:35→20:17)
--- NOTE | 2017-01-18 14:50 | PQF ---
CLINICAL DOCUMENTATION IMPROVEMENT CLARIFICATION FORM: ICD-10 Updated PLEASE DO AN ADDENDUM TO THE PROGRESS NOTE WITH ANY DOCUMENTATION UPDATES OR ADDITIONS AND CARRY THROUGH TO DC SUMMARY. THANK YOU. DATE: 01/18/17 ATTN: Dr. Delgadillo Please exercise your independent, professional judgment in responding to the clarification form. Clinical indicators are provided on the bottom of this form for your review Please check appropriate box(s): HEART FAILURE: A.TYPE: [ ] Systolic / HFrEF [ ] Diastolic / HFpEF [ x ] Combined Systolic / Diastolic B.ACUITY [ ] Acute [ ] Acute on Chronic [ ] Chronic [ ] Other diagnosis [ ] Unable to determine For continuity of documentation, please document condition throughout progress notes and discharge summary. Thank You. CLINICAL INDICATORS - SIGNS / SYMPTOMS / LABS H&P: HX OF CHRONIC CONGESTIVE HEART FAILURE W/ EF OF 40-45% CHEST XRY 01/15/17 SHOWED CARDIOMEGALY W/ CHRONIC LUNG CHANGES.. RISKS: H&P: HX CAD; HX OF CVA; CHRONIC CONGESTIVE HEART FAILURE . CKD 2-3 TREATMENT: CPOE 01/16: COREG 12.5 MG PO BID CPOE 01/16: HYDRALAZINE HCL 10 MG SLOW IVP Q4 HR PRN (This form is maintained as a part of the permanent medical record) 2014 [employer]. All Rights Reserved Wanda Lucas RN, BSN [email or web address] Office: [phone] [facility]
[2017-01-18] MEDS: risperiDONE 1 MG TAB PO SCH (20:17)
[2017-01-18] MEDS: Atorvastatin Calcium 40 MG TAB PO SCH (20:17)
--- NOTE | 2017-01-18 23:20 | PRG ---
DATE OF SERVICE: 01/18/2017 SUBJECTIVE: Mr. Huff is a pleasant 71-year-old male who had presented with the changes i n mentation and generalized weakness with inability to move feet. After admission, he had a CT head without contrast, which showed no acute intracranial abnormality. The patient was seen and evaluat ed by Dr. Sergio Olson, who felt that his symptoms may have been related to orthostatic hypotension. I am being to reevaluate this patient today as patient has been having increased lethargicness in the morning. According to the nurse, the patient has been very difficult to arouse and very letharg ic and tired in the morning when he wakes up. It takes several hours before he is able to start ashley ng more alert and oriented. I am being asked to evaluate with this episodes of lethargicness are re lated to medications. He is currently taking Keppra 500 mg b.i.d. as well as Risperdal 2 mg at bedt nikita. It is unknown whether the patient had episodes at home. I had actually seen this patien t on his previous admission in 12/27/2016, at which time he was noted to have generalized seizures a nd he was started on Keppra 500 mg b.i.d. at that time. The patient is unable to provide any detail ed history. PHYSICAL EXAMINATION: VITAL SIGNS: Blood pressure of 105/56, pulse of 56, temperature of 97.6, respirations of 20, O2 sat s of 96% on room air. GENERAL: Well-developed, well-nourished male, in no apparent distress. RESPIRATORY: Clear to auscultation bilaterally. CARDIOVASCULAR: Regular rate and rhythm. NEUROLOGICAL: Mental status: The patient is awake, alert, oriented x2. Speech and language: Flue nt speech. Cranial nerves: Pupils are 3 mm and reactive. Visual luna are full to threat. Extra ocular muscles are intact. Face is symmetric. Motor exam showed normal tone and bulk with 5/5 stre ngth in both upper and lower extremities. IMAGING STUDIES: CT head without contrast was reviewed, which showed no acute intracranial abnormal ity. There is a redemonstration of multifocal white matter hypoattenuation lacunar infarction . IMPRESSION: 1. History of subdural hematoma. 2. Generalized seizures. 3. Orthostatic hypotension. Mr. Huff is a pleasant 71-year-old male with recent history of subdural hematoma and gene ralized seizures, who is on Keppra 500 mg b.i.d. He has been noted to have increasing lethargicness in the morning. This is likely related to medication effect from Keppra and risperidone. At this time, I would recommend either decreasing the dose of the risperidone to 1 mg at bedtime or Keppra t o 250 mg at bedtime. We can continue on Keppra 500 mg in the morning as previously been prescribed. No further neurological workup needed. The patient will follow up in my clinic post-discharge. Thank you for your consultation.
[2017-01-19 05:41] LABS: #Basophils 0.1 thou/uL (0.0-0.2); #Eosinphils 0.4 thou/uL (0.0-0.7); #Lymphocytes 1.5 thou/uL (1.20-3.40); #Monocytes 0.5 thou/uL (0.11-0.59); #Neutrophils 3.7 thou/uL (1.40-6.50); %Basophils 1.1 % (0.0-1.0); %Eosinophils 6.4 % (0.0-10.0); %Lymphocytes 24.5 % (21.0-51.0); %Monocytes 7.8 % (0.0-10.0); Hematocrit 35.6 % (42.0-52.0); Red Blood Cell (RBC) Count 3.83 mill/uL (4.70-6.10); White Blood Cell (WBC) Count 6.1 thou/uL (4.8-10.8)
[2017-01-19 06:00] LABS: Anion Gap 8 mmol/L (10-20); BUN (Urea Nitrogen) 15 mg/dL (8.4-25.7); Calc. Creatinine Clearance 75 mL/min (70-130); Calcium 8.9 mg/dL (7.8-10.44); Carbon Dioxide 29 mmol/L (23-31); Chloride 105 mmol/L (98-107); Estimated GFR-MDRD 59
[2017-01-19] MEDS: FLUoxetine HCl 20 MG CAP PO SCH (08:07)
[2017-01-19] MEDS: levETIRAcetam 500 MG TAB PO SCH ×2 (08:07→20:58)
[2017-01-19] MEDS: Carvedilol 6.25 MG TAB PO SCH ×2 (08:07→21:02)
[2017-01-19] MEDS: Gabapentin 300 MG CAP PO SCH ×2 (08:08→20:58)
[2017-01-19] MEDS: Famotidine 20 MG TAB PO SCH ×2 (08:08→20:58)
[2017-01-19] MEDS: Aspirin 325 mg Enteric Coated Tablet PO SCH (08:08)
[2017-01-19] MEDS: Finasteride 5 MG TAB PO SCH (08:08)
[2017-01-19] MEDS: Tamsulosin HCl 0.4 MG CAP PO SCH ×2 (08:08→20:58)
[2017-01-19] MEDS: busPIRone HCl 5 MG TAB PO SCH ×2 (08:10→20:58)
[2017-01-19] MEDS ORDERED: risperiDONE 1 MG TAB PO SCH (13:50)
--- NOTE | 2017-01-19 14:09 | PDOC.PN ---
- Subjective Encounter Start Date: 01/19/17 Encounter Start Time: 14:08 Patient seen and examined. No new complaints. No overnight events. much better today. More awake Risperdal was held last night. at bedside waiting for rehab bed. - Objective Resuscitation Status: Resuscitation Status FULL:Full Resuscitation MAR Reviewed: Yes Vital Signs & Weight: Vital Signs (12 hours) Temp Pulse Resp BP BP Pulse Ox 01/19/17 11:46 97.9 F 60 18 119/55 L 95 01/19/17 08:07 140/60 01/19/17 08:00 97.9 F 60 18 01/19/17 07:49 97.9 F 60 18 140/60 96 01/19/17 04:06 97.8 F 60 18 145/70 H 98 Weight Admit Weight 214 lb 3.2 oz Weight 210 lb 11.2 oz I&O: 01/18/17 01/19/17 01/20/17 06:59 06:59 06:59 Intake Total 720 1070 Balance 720 1070 Result Diagrams: 01/19/17 05:05 01/19/17 05:05 Phys Exam - Physical Examination Constitutional: NAD HEENT: moist MMs, sclera anicteric Neck: supple Respiratory: no wheezing, no rales Cardiovascular: RRR Gastrointestinal: soft Musculoskeletal: no edema, edema present residual paresis on left side Psychiatric: normal affect, A&O x 3 Skin: no rash Dx/Plan (1) BPH (benign prostatic hyperplasia) Code(s): N40.0 - BENIGN PROSTATIC HYPERPLASIA WITHOUT LOWER URINRY TRACT SYMP Status: Chronic (2) RAPHAEL (acute kidney injury) Code(s): N17.9 - ACUTE KIDNEY FAILURE, UNSPECIFIED Status: Acute (3) Altered mental status Code(s): R41.82 - ALTERED MENTAL STATUS, UNSPECIFIED Status: Acute (4) Fall Code(s): W19.XXXA - UNSPECIFIED FALL, INITIAL ENCOUNTER Status: Acute (5) TIA (transient ischemic attack) Status: Acute (6) CAD (coronary artery disease) Code(s): I25.10 - ATHSCL HEART DISEASE OF [place] CORONARY ARTERY W/O ANG PCTRS Status: Chronic Qualifiers: (7) CKD (chronic kidney disease), stage III Code(s): N18.3 - CHRONIC KIDNEY DISEASE, STAGE 3 (MODERATE) Status: Chronic (8) HLD (hyperlipidemia) Code(s): E78.5 - HYPERLIPIDEMIA, UNSPECIFIED Status: Chronic Qualifiers: (9) HTN (hypertension) Code(s): I10 - ESSENTIAL (PRIMARY) HYPERTENSION Status: Chronic Qualifiers: (10) Pneumonia Code(s): J18.9 - PNEUMONIA, UNSPECIFIED ORGANISM Status: Acute Qualifiers: Pneumonia type: due to unspecified organism Laterality: unspecified laterality Lung location: unspecified part of lung Qualified Code(s): J18.9 - Pneumonia, unspecified organism (11) Systolic and diastolic CHF, chronic Code(s): I50.42 - CHRONIC COMBINED SYSTOLIC AND DIASTOLIC HRT FAIL Status: Chronic - Plan cont current plan of care, plan discussed w/ family, continue antibiotics, PT/OT , social insurance administrator, DVT proph w/SCDs * . much more awake today. will reduce the Risperdal dose. Appreciate Neuro input. continue PT.OT Transfer to rehab when bed is available. CM for DC planning.
[2017-01-19] MEDS: risperiDONE 1 MG TAB PO SCH (20:57)
[2017-01-19] MEDS: Atorvastatin Calcium 40 MG TAB PO SCH (20:58)
[2017-01-20] MEDS: Tamsulosin HCl 0.4 MG CAP PO SCH ×2 (11:05→21:38)
[2017-01-20] MEDS: Famotidine 20 MG TAB PO SCH ×2 (11:05→21:38)
[2017-01-20] MEDS: Finasteride 5 MG TAB PO SCH (11:05)
[2017-01-20] MEDS: Carvedilol 6.25 MG TAB PO SCH ×2 (11:06→21:38)
[2017-01-20] MEDS: Aspirin 325 mg Enteric Coated Tablet PO SCH (11:06)
--- NOTE | 2017-01-20 11:48 | PDOC.PN ---
- Subjective Encounter Start Date: 01/20/17 Encounter Start Time: 11:47 Mr. Huff does not have any complaints. His nirse noted that he was a bit lethargic this morning, but he has since come around. His is at his bedside , and she admits that he is becoming more alert sooner now than he has in the past few days. - Objective Resuscitation Status: Resuscitation Status DNR:Do Not Resuscitate MAR Reviewed: Yes Vital Signs & Weight: Vital Signs (12 hours) Temp Pulse Resp BP BP BP Pulse Ox 01/20/17 11:22 97.8 F 60 18 142/68 H 98 01/20/17 11:06 140/60 01/20/17 08:00 97.7 F 59 L 18 98 01/20/17 07:35 97.7 F 59 L 18 140/72 98 01/20/17 04:00 97.5 F L 58 L 20 136/63 94 L 01/20/17 00:00 98.1 F 60 17 150/70 H 97 Weight Admit Weight 214 lb 3.2 oz Weight 217 lb 14.4 oz I&O: 01/19/17 01/20/17 01/21/17 06:59 06:59 06:59 Intake Total 1070 910 Balance 1070 910 Result Diagrams: 01/19/17 05:05 01/19/17 05:05 Phys Exam - Physical Examination HEENT: PERRLA Respiratory: no wheezing, no rales, no rhonchi, clear to auscultation bilateral Cardiovascular: RRR, no significant murmur Gastrointestinal: soft, non-tender, positive bowel sounds Musculoskeletal: no edema Dx/Plan (1) Physical deconditioning Code(s): R53.81 - OTHER MALAISE Status: Acute (2) Encephalopathy acute Code(s): G93.40 - ENCEPHALOPATHY, UNSPECIFIED Status: Acute (3) Pneumonia Code(s): J18.9 - PNEUMONIA, UNSPECIFIED ORGANISM Status: Acute Qualifiers: Pneumonia type: due to unspecified organism Laterality: unspecified laterality (4) BPH (benign prostatic hyperplasia) Code(s): N40.0 - BENIGN PROSTATIC HYPERPLASIA WITHOUT LOWER URINRY TRACT SYMP Status: Chronic (5) CAD (coronary artery disease) Code(s): I25.10 - ATHSCL HEART DISEASE OF [place] CORONARY ARTERY W/O ANG PCTRS Status: Chronic Qualifiers: (6) H/O: CVA (cerebrovascular accident) Code(s): Z86.73 - PRSNL HX OF TIA (TIA), AND CEREB INFRC W/O RESID DEFICITS Status: Chronic (7) HTN (hypertension) Code(s): I10 - ESSENTIAL (PRIMARY) HYPERTENSION Status: Chronic Qualifiers: - Plan * Lethargy- probably due to toxic metabolic encephalopathy from medications * He is improving with a lower dose of Respidal * Pneumonia- continue Levaquin, and can transition to oral soon * ROXANN- continue CPAP/BiPAP at night * HTN- blood pressure is stable. * Continue PT * Awaiting placement
[2017-01-20] MEDS: busPIRone HCl 5 MG TAB PO SCH ×2 (12:11→21:38)
[2017-01-20] MEDS: FLUoxetine HCl 20 MG CAP PO SCH (12:11)
[2017-01-20] MEDS: Gabapentin 300 MG CAP PO SCH ×2 (12:12→21:38)
[2017-01-20] MEDS: levETIRAcetam 500 MG TAB PO SCH ×2 (12:17→21:38)
[2017-01-20] MEDS: risperiDONE 1 MG TAB PO SCH (21:37)
[2017-01-20] MEDS: Atorvastatin Calcium 40 MG TAB PO SCH (21:37)
--- NOTE | 2017-01-21 10:04 | PDOC.PN ---
- Subjective Encounter Start Date: 01/21/17 Encounter Start Time: 10:02 Mr. Huff is awake and alert now. He says he slept well last night, and does not have any complaints at this time. - Objective Resuscitation Status: Resuscitation Status DNR:Do Not Resuscitate MAR Reviewed: Yes Vital Signs & Weight: Vital Signs (12 hours) Temp Pulse Resp BP BP Pulse Ox 01/21/17 07:30 98.3 F 60 113/55 L 93 L 01/21/17 04:27 99.3 F 67 16 120/61 91 L 01/20/17 23:56 98.7 F 61 12 114/54 L 94 L Weight Admit Weight 214 lb 3.2 oz Weight 217 lb 4.8 oz I&O: 01/20/17 01/21/17 01/22/17 06:59 06:59 06:59 Intake Total 910 750 Balance 910 750 Result Diagrams: 01/19/17 05:05 01/19/17 05:05 Phys Exam - Physical Examination HEENT: PERRLA Respiratory: no wheezing, no rales, no rhonchi, clear to auscultation bilateral Cardiovascular: RRR, no significant murmur Gastrointestinal: soft, positive bowel sounds Musculoskeletal: no edema Dx/Plan (1) Physical deconditioning Code(s): R53.81 - OTHER MALAISE Status: Acute (2) Encephalopathy acute Code(s): G93.40 - ENCEPHALOPATHY, UNSPECIFIED Status: Acute (3) Pneumonia Code(s): J18.9 - PNEUMONIA, UNSPECIFIED ORGANISM Status: Acute Qualifiers: Pneumonia type: due to unspecified organism Laterality: unspecified laterality (4) BPH (benign prostatic hyperplasia) Code(s): N40.0 - BENIGN PROSTATIC HYPERPLASIA WITHOUT LOWER URINRY TRACT SYMP Status: Chronic (5) CAD (coronary artery disease) Code(s): I25.10 - ATHSCL HEART DISEASE OF [place] CORONARY ARTERY W/O ANG PCTRS Status: Chronic Qualifiers: (6) H/O: CVA (cerebrovascular accident) Code(s): Z86.73 - PRSNL HX OF TIA (TIA), AND CEREB INFRC W/O RESID DEFICITS Status: Chronic (7) HTN (hypertension) Code(s): I10 - ESSENTIAL (PRIMARY) HYPERTENSION Status: Chronic Qualifiers: - Plan * Lethargy- this is slowly resolving. Before he would be somnolent until noon, but he is gradually sleeping less in the morning. Continue the lower dose of Respidal * Pneumonia- will change Levaquin to p.o., and he will only need about 3 more days * HTN- blood pressure is stable * ROXANN- continue BiPAP/ CPAP * Awaiting [facility] transfer.
[2017-01-21] MEDS: Carvedilol 6.25 MG TAB PO SCH (11:11)
[2017-01-21] MEDS: FLUoxetine HCl 20 MG CAP PO SCH (11:12)
[2017-01-21] MEDS: levETIRAcetam 500 MG TAB PO SCH (11:13)
[2017-01-21] MEDS: Finasteride 5 MG TAB PO SCH (11:13)
[2017-01-21] MEDS: Aspirin 325 mg Enteric Coated Tablet PO SCH (11:14)
[2017-01-21] MEDS: Tamsulosin HCl 0.4 MG CAP PO SCH (11:14)
[2017-01-21] MEDS: busPIRone HCl 5 MG TAB PO SCH (11:14)
[2017-01-21] MEDS: Famotidine 20 MG TAB PO SCH (11:14)
[2017-01-21] MEDS: Gabapentin 300 MG CAP PO SCH (11:14)
[2017-01-21 11:52] VITALS: BP 113/63; TEMP 98.8
--- NOTE | 2017-01-21 12:00 | DIS ---
DATE OF ADMISSION: 01/16/2017 DATE OF DISCHARGE: 01/21/2017 PRIMARY CARE PHYSICIAN: Dr. Siva Reyna. DISCHARGE DISPOSITION: To [facility]. DISCHARGE DIAGNOSES: 1. Toxic metabolic encephalopathy. 2. Overmedication with Risperdal. 3. Obstructive sleep apnea. 4. History of cerebrovascular disease. 5. History of coronary artery disease. 6. Generalized deconditioning. 7. Chronic systolic heart failure with an ejection fraction of 40%-45%. 8. 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 9. Dyslipidemia. 10. History of peripheral vascular disease. 11. History of prostate cancer. 12. Schizophrenia. DISCHARGE DIAGNOSIS: Acute renal failure, resolved. DISCHARGE MEDICATIONS: Please note that patient was taken off of Lasix and lisinopril due to acute renal failure, this is resolved. Please reassess when to restart. The patient's Risperdal dose was decreased from 2 mg to 0.5 mg at bedtime and buspirone was decreased to 5 mg twice a day. He is to continue Flomax 0.4 mg twice daily, levofloxacin 500 mg p.o. for 3 additional days, Keppra 500 mg t wice a day, gabapentin 300 mg twice daily, finasteride 5 mg daily, fluoxetine 20 mg 3 capsules daily , carvedilol 6.25 mg 2 tablets twice a day, atorvastatin 80 mg at bedtime, and aspirin 325 mg a day. PROCEDURES DONE DURING ADMISSION: The patient had a CT scan of the brain which showed some atrophy and chronic white matter changes. There are no acute abnormalities. The patient also had a CT scan of the abdomen and pelvis showing some focal area of pleural-based consolidation in the right lung base and a nonobstructing left inguinal hernia, 3.4 cm of infrarenal aortic aneurysm. He also had b ilateral carotid Doppler showing no hemodynamically significant stenosis. CODE STATUS: DNR. ALLERGIES: SULFA and TETRACYCLINE. HOSPITAL COURSE: Mr. Huff is a pleasant 71-year-old gentleman who had been in the inpatient rehabi litation facility after suffering a fall and while he was in rehabilitation, it is reported that he was getting progressively more lethargic and developed the inability to walk. He was admitted for p ossible TIA versus stroke. There is no evidence of any acute cerebrovascular accident by CT scan; h owever, since he does have a pacemaker, we were unable to perform an MRI. He was seen by neurologis whit and it was felt that he did not have any focal lesions that would account for stroke and on furthe r questioning, it appears that he is also very lethargic and drowsy and a lot of his symptoms were r elated to overmedication with Risperdal. On discussion with his son and his at the bedside, it appears as if he was given a higher dose of Risperdal that had originally been prescribed and once the Risperdal dose had been decreased, he began to become more alert and awake during his hospital s timoteo and he also began to regain the use of his lower extremities and had been walking a few steps wi th the walker and it was felt that some of his symptoms were related to a toxic metabolic encephalop athy from overmedication and also likely from his obstructive sleep apnea combined. His says t hat she was afraid she is not going to be able to manage his care at home, especially in his new wea kened condition (the patient had a recent hospital stay for subdural hematoma) and for this reason s he is requesting custodial evaluation and possibly placement in the future. The patient is be ing discharged to the [facility] today on 01/21/2017.
== END 2017-01-21 12:50 | DRG 91 ==
LOC: ERS 19:23 → 2SE 01-16 02:01
PROVIDERS: ADMIT Internal Medicine; ATTEND Internal Medicine
DX: G92 Toxic encephalopathy (principal); J18.9 Pneumonia, unspecified organism; N17.9 Acute kidney failure, unspecified; I13.0 Hypertensive heart and chronic kidney disease with heart failure and stage 1 through stage 4 chronic kidney disease, or unspecified chronic kidney disease; G40.409 Other generalized epilepsy and epileptic syndromes, not intractable, without status epilepticus; I50.42 Chronic combined systolic (congestive) and diastolic (congestive) heart failure; N18.3 Chronic kidney disease, stage 3 (moderate); E86.0 Dehydration; Z95.0 Presence of cardiac pacemaker; R47.1 Dysarthria and anarthria; Z91.81 History of falling; I25.10 Atherosclerotic heart disease of native coronary artery without angina pectoris; G47.33 Obstructive sleep apnea (adult) (pediatric); E78.5 Hyperlipidemia, unspecified; I73.9 Peripheral vascular disease, unspecified; Z85.46 Personal history of malignant neoplasm of prostate; Z95.1 Presence of aortocoronary bypass graft; Z90.79 Acquired absence of other genital organ(s); Z85.828 Personal history of other malignant neoplasm of skin; Z88.1 Allergy status to other antibiotic agents; Z88.2 Allergy status to sulfonamides; I95.1 Orthostatic hypotension; T42.6X5A Adverse effect of other antiepileptic and sedative-hypnotic drugs, initial encounter; T43.595A Adverse effect of other antipsychotics and neuroleptics, initial encounter; I71.4 Abdominal aortic aneurysm, without rupture; Z66 Do not resuscitate; R53.81 Other malaise; N40.0 Benign prostatic hyperplasia without lower urinary tract symptoms; Z86.73 Personal history of transient ischemic attack (TIA), and cerebral infarction without residual deficits; W18.30XA Fall on same level, unspecified, initial encounter; I25.2 Old myocardial infarction; H40.9 Unspecified glaucoma; F20.9 Schizophrenia, unspecified; F41.9 Anxiety disorder, unspecified; F32.9 Major depressive disorder, single episode, unspecified; Z87.891 Personal history of nicotine dependence
CPT/HCPCS: 36415; 36416; 51702; 70450; 71010; 74177; 80048; 80053; 80061; 81003; 82140; 82550; 82553; 82805; 83605; 83690; 83735; 83880; 84443; 84484; 85007; 85025; 85027; 85610; 85730; 87040; 87086; 93005; 93880; 94760; 96365; 96366; G8978-GP-CK; G8979-GP-CJ; G8987-GO-CL; G8988-GO-CJ; G8996-GN-CJ; G8997-GN-CJ; J1956

== ENCOUNTER 2017-03-06 12:22 | Inpatient (IN) | payer MEDICARE ==
[2017-03-06 13:21] LABS: Mean Platelet Volume 7.7 fL (7.4-10.4); Red Blood Cell (RBC) Count 3.36 mill/uL (4.70-6.10); White Blood Cell (WBC) Count 16.3 thou/uL (4.8-10.8)
[2017-03-06 13:25] LABS: PTT 29.8 SEC (22.9-36.1); Prothrombin Time 14.8 SEC (12.0-14.7)
[2017-03-06 13:41] LABS: ALT (SGPT) 13 U/L (8-55); AST (SGOT) 28 U/L (5-34); Alkaline Phosphatase 92 U/L (40-150); Anion Gap 12 mmol/L (10-20); BUN (Urea Nitrogen) 22 mg/dL (8.4-25.7); Bilirubin, Total 0.6 mg/dL (0.2-1.2); Calc. Creatinine Clearance 0 mL/min (70-130); Carbon Dioxide 22 mmol/L (23-31); Chloride 109 mmol/L (98-107); Estimated GFR-MDRD 47; Globulin 2.8 g/dL (2.4-3.5); Lipase 19 U/L (8-78); Magnesium 1.2 mg/dL (1.6-2.6); Protein, Total 5.5 g/dL (5.8-8.1)
[2017-03-06 13:43] LABS: Band 4 % (5-11); Neutrophil 87 % (42-75)
[2017-03-06 13:45] LABS: Troponin I 0.029 ng/mL (< 0.028)
[2017-03-06 14:11] LABS: Bilirubin Negative (Negative); Blood, Urine Negative (Negative); Glucose, Urine (Dipstick) Negative (Negative); Ketone, Urine Negative (Negative); Nitrite Negative (Negative); Protein, Urine (Dipstick) Negative (Neg-Trace); Urobilinogen 0.2 mg/dL (0.2-1.0)
[2017-03-06] MEDS ORDERED: Magnesium Sulfate 2 GM/100 ML BAG ONE (14:29)
--- NOTE | 2017-03-06 14:39 | RAD ---
CHEST 1 VIEW: Date: 03/06/17 COMPARISON: 01/15/17. HISTORY: Altered mental status. FINDINGS: Portable upright chest obtained. Stable right-sided transvenous pacemaker. Atherosclerosis of aorta. Normal cardiac silhouette. Pulmonary vessels are slightly prominent. Patchy interstitial and alveolar infiltrates in the right lung base. Additional interstitial opacities are noted. No pneumothorax. IMPRESSION: Patchy interstitial and alveolar infiltrates in the right lung base. POS: [facility]
[2017-03-06] MEDS ORDERED: Piperacillin/Tazobactam 4.5 GM in Sodium Chloride 0.9% 100 ML IVPB SCH (15:45)
--- NOTE | 2017-03-06 18:36 | HP ---
DATE OF ADMISSION: 03/06/2017 CHIEF COMPLAINT: Altered mental status and hypotension. HISTORY OF PRESENT ILLNESS: The patient is a 71-year-old male, [facility] resident from [place] who was sent to the emergency room by the nursing staff from [facility] after the nurses noticed that blood pressure was running low and his mental status changed. He was difficult to arouse and was not responding to the stuff like he usually does. Apparently, when the EMS guards went to the [facility] to pick him up, his temperature was 101.5 and his systolic blood pressure it was in the 70s, but he was still able to answer questions and he was quite appropriate in those answ ers. PAST MEDICAL HISTORY: Positive for: 1. Coronary artery disease. 2. Chronic congestive heart failure with ejection fraction of 40-45%. 3. History of cerebrovascular accident with prior dysphagia and left-sided weakness. 4. Closed head injury in 12/2016 5. Obstructive sleep apnea with home CPAP. 6. Chronic kidney disease stage 2-3. 7. Dyslipidemia. 8. History of schizophrenia. 9. Peripheral vascular disease. 10. History of prostate cancer. 11. Status post subdural hematoma and status post mechanical fall with closed head injury. 12. History of pneumonia in 07/2016. 13. Chronic deconditioning. PAST SURGICAL HISTORY: 1. Cholecystectomy. 2. Prostatectomy. 3. Left elbow repair. 4. Coronary artery bypass grafting. 5. Skin cancer removal. CURRENT MEDICATIONS: Atorvastatin 80 mg at bedtime, buspirone 5 mg twice a day, Coreg 25 mg twice a day, Ecotrin 325 mg once a day, finasteride 5 mg tablets once a day, furosemide 20 mg once a day, roberto apentin 300 mg twice a day, Keppra 500 mg twice a day, lisinopril 5 mg once a day, MiraLax 17 grams o nce a day, Prozac 20 mg 3 capsules once a day, risperidone 0.5 mg at bedtime, Flomax 0.4 mg twice a d ay, Tylenol Arthritis p.r.n. as needed. ALLERGIES: SULFA and TETRACYCLINE. FAMILY HISTORY: Positive for coronary artery disease in multiple family members. SOCIAL HISTORY: He ambulates with a rolling walker. He has a history of repetitive falls. He has h istory of remote tobacco use. He does not use any illicit drugs. Currently, he does not drink any a lcohol. REVIEW OF SYSTEMS: Difficult to obtain. PHYSICAL EXAMINATION: GENERAL: The patient is not responsive from time to time. He answers my questions, but it is very s low and I questioned accuracy of this interview. VITAL SIGNS: 97/57, pulse is 60, pulse oximetry is 93%. HEENT: His head is atraumatic, normocephalic. Eyes: Pupils responding to light properly sclerae no nicteric. Conjunctivae pinkish. Oral mucosa is moist. NECK: No lymphadenopathy. Thyroid is not palpable. No JVDs. LUNGS: Clear. HEART: S1, S2 normal. No S3, no S4. ABDOMEN: Obese, soft, nontender. Bowel sounds are present. EXTREMITIES: No clubbing, cyanosis or edema. NEUROLOGIC: He tries to follow my commands on and off, but he is very slow in response. He behaves like he is sedated and that is probably what it is because he is on several medications for, which ca n sedate. LABORATORY: Showed white count of 16.3, hemoglobin 10.5, hematocrit 32.0, platelet count is 191. Co agulation: INR 1.1, PT of 14.8. Chemistry showed sodium of 139, potassium 3.9, chloride 109, CO2 22 , BUN 22, creatinine 1.48, glucose 112, magnesium 1.2. CK-MB 3.1, troponin 0.029. BNP 196.5. Serum total protein 5.5, albumin 2.7, lipase 19 and globulin 2.8. Urinalysis within normal limits. Chest x-ray showed right lower lobe infiltrate which is probably pneumonia. EKG showed normal sinus rhyth m, 74 beats per minute, no ischemic changes. There is some conduction abnormalities present. CODE STATUS: DNR. IMPRESSION: 1. Suspicion for sepsis with hypotension and fever and elevated white count. The patient received v ancomycin and Zosyn in the emergency room. His blood pressure is running around 95-100. At this poi nt, it sounds since he has a history of congestive heart failure, the patient knows to use IV fluids on him. We might use some vasopressors at some point, if his blood pressure drops lower 2. Altered mental status. He seems to be sedated. He is on several medications like gabapentin, Ri sperdal, buspirone and SSRIs, which can cause sedation. We are going to try to hold all of them for 1 day and see whether this changes his altered mental status. 3. Hypomagnesemia. He received magnesium in the emergency room, and we will keep him on additional 2 doses of magnesium. We will check his magnesium level tomorrow. 4. Multiple other medical problems which coronary artery disease, chronic, stable, although his firs t troponin I is slightly elevated and we will obtain two additional troponins. 5. Chronic congestive heart failure with ejection fraction of 40-45%, we are going to hold his Coreg and other medications since he is hypotensive. 6. Obstructive sleep apnea with home CPAP. 7. Chronic kidney disease stage 2-3. 8. Peripheral vascular disease. 9. Status post several falls and developing subdural hematoma after close head injury. 10. Chronic deconditioning. 11. History of cerebrovascular accident with prior dysphagia and left-sided weakness. 12. Hyperlipidemia. PLAN: Full admission to MICU. At this point, he does not need any vasopressors. He is a DNR patien t. IV Hep-Lock. Continue both antibiotics, Zosyn and vancomycin. Recheck his CBC and BMP tomorrow morning, blood cultures, urine cultures. Continue his [facility] meds after reconciliation and DVT and PUD prophylaxis.
[2017-03-06] MEDS ORDERED: Ondansetron ODT 4 MG TAB SL PRN (19:01)
[2017-03-06] MEDS ORDERED: Acetaminophen 325 MG TAB PO PRN (19:01)
[2017-03-06] MEDS ORDERED: Ondansetron HCl/PF 4 MG/2 ML Vial IVP PRN (19:01)
[2017-03-06] MEDS: Sodium Chloride 0.9% 1,000 ML IV SCH (20:56)
[2017-03-06] MEDS: Heparin 5,000 UNITS/ML VIAL SC SCH (20:56)
[2017-03-06] MEDS ORDERED: VANCOMYCIN IVPB PRN (21:11)
[2017-03-06] MEDS ORDERED: Vancomycin HCl 500 MG in Sodium Chloride 0.9% 100 ML IVPB SCH (21:30)
[2017-03-07] MEDS: Piperacillin/Tazobactam 3.375 GM in Sodium Chloride 0.9% 100 ML IVPB SCH ×5 (00:13→23:14)
[2017-03-07 02:07] VITALS: BMI 42.4
[2017-03-07 06:05] LABS: #Eosinphils 0.2 thou/uL (0.0-0.7); #Lymphocytes 1.2 thou/uL (1.20-3.40); #Monocytes 0.5 thou/uL (0.11-0.59); #Neutrophils 11.3 thou/uL (1.40-6.50); %Basophils 0.2 % (0.0-1.0); %Eosinophils 1.3 % (0.0-10.0); %Lymphocytes 9.1 % (21.0-51.0); %Monocytes 4.1 % (0.0-10.0); Hematocrit 30.2 % (42.0-52.0); Mean Platelet Volume 8.1 fL (7.4-10.4); Red Blood Cell (RBC) Count 3.16 mill/uL (4.70-6.10); White Blood Cell (WBC) Count 13.3 thou/uL (4.8-10.8)
[2017-03-07 06:29] LABS: Anion Gap 8 mmol/L (10-20); BUN (Urea Nitrogen) 22 mg/dL (8.4-25.7); Calc. Creatinine Clearance 76 mL/min (70-130); Calcium 8.6 mg/dL (7.8-10.44); Carbon Dioxide 26 mmol/L (23-31); Chloride 107 mmol/L (98-107); Estimated GFR-MDRD 55
[2017-03-07] MEDS: Sodium Chloride 0.9% 1,000 ML IV SCH (08:42)
[2017-03-07] MEDS: Heparin 5,000 UNITS/ML VIAL SC SCH ×3 (08:43→20:34)
[2017-03-07] MEDS ORDERED: Polyethylene Glycol 3350 17 GM Packet PO PRN (11:46)
[2017-03-07] MEDS ORDERED: Guaifenesin DM 100-10/5 ML UDCUP PO PRN (11:52)
[2017-03-07] MEDS ORDERED: Loperamide HCl 2 MG CAP PO PRN (11:54)
--- NOTE | 2017-03-07 12:29 | PRG ---
DATE OF SERVICE: 03/07/2017 SUBJECTIVE: The patient is seen and examined at the bedside. He is sitting up and eating breakfast. He looks significantly better than yesterday. He does not have any complaints to offer. No pain. He is asking for more food because he is hungry. OBJECTIVE: VITAL SIGNS: Blood pressure is 111/52, pulse is 61, respiratory rate 12, O2 saturation is 94% on 2 l iters by nasal cannula and temperature is 98.4. HEENT: His head is atraumatic, normocephalic. Eyes: PERRLA. Sclerae nonicteric. Conjunctivae pink barbara. Oral mucosa is moist. NECK: Supple, no lymphadenopathy. LUNGS: Crackles at the right base. No wheezing. CARDIOVASCULAR: S1, S2 normal, no S3, no S4. ABDOMEN: Soft, obese, nontender, bowel sounds are present, no organomegaly. EXTREMITIES: 1+ peripheral edema similar bilaterally. NEUROLOGIC: He is able to answer all questions properly. He knows where he is. He knows to date an d time. His altered mental status improved significantly. LABORATORY DATA: Showed a white count is down to 13.3, hemoglobin is 9.7, hematocrit is 32.2 and jacque telet count is 174,000. Normal electrolytes, normal BUN and creatinine at 1.28. Influenza type A an d B direct, EIA is negative for both pathogens. IMPRESSION: 1. Sepsis with hypotension and fever. The patient is on vancomycin and Zosyn. He responded very qu ickly. He bounced back with an impressive way and his mental condition improved and he is, as I ment ioned above, sitting and eating his breakfast. 2. Altered mental status, improved significantly with general improvement. 3. Hypomagnesemia. His magnesium is down to 1.5, it is improved from yesterday, but he is going to need more supplementation. 4. Coronary artery disease, chronic, stable. We will obtain additional 2 sets of cardiac enzymes si nce his first was slightly elevated, this is just to make sure that he is not developing acute gifford ry syndrome, but that is less likely since he is doing so much better so quickly. 5. Obstructive sleep apnea with home CPAP. 6. Chronic congestive heart failure with ejection fraction of 40-45%, stable. We will try to restar t his Coreg since he is not hypotensive. 7. Chronic kidney disease stage 2-3. 8. Peripheral vascular disease. 9. Status post several falls and developing subdural hematoma after closed head injury. 10. Chronic deconditioning. 11. History of cerebrovascular accident with prior dysphagia and left-sided weakness from which he r ecovered. 12. Hyperlipidemia. PLAN: So plan is to continue his care with 2 antibiotics and blood cultures are still pending. The patient is DNR. We will continue current measures.
[2017-03-07 13:46] LABS: Troponin I 0.013 ng/mL (< 0.028)
[2017-03-07] MEDS ORDERED: Vancomycin HCl 1.5 GM in Sodium Chloride 0.9% 250 ML 300 ML IVPB SCH (16:00)
[2017-03-07 17:33] LABS: Troponin I 0.016 ng/mL (< 0.028)
[2017-03-07] MEDS: levETIRAcetam 500 MG TAB PO SCH (20:34)
[2017-03-07] MEDS: Atorvastatin Calcium 40 MG TAB PO SCH (20:34)
[2017-03-07] MEDS: busPIRone HCl 5 MG TAB PO SCH (20:35)
[2017-03-07] MEDS: Tamsulosin HCl 0.4 MG CAP PO SCH (20:35)
[2017-03-07 21:32] LABS: Troponin I 0.014 ng/mL (< 0.028)
[2017-03-08] MEDS: Piperacillin/Tazobactam 3.375 GM in Sodium Chloride 0.9% 100 ML IVPB SCH ×2 (05:06→12:13)
[2017-03-08 05:26] LABS: #Eosinphils 0.2 thou/uL (0.0-0.7); #Monocytes 0.5 thou/uL (0.11-0.59); #Neutrophils 8.1 thou/uL (1.40-6.50); %Basophils 0.4 % (0.0-1.0); %Eosinophils 1.9 % (0.0-10.0); %Lymphocytes 10.1 % (21.0-51.0); %Monocytes 5.5 % (0.0-10.0); Hematocrit 29.4 % (42.0-52.0); Mean Platelet Volume 8.7 fL (7.4-10.4); Red Blood Cell (RBC) Count 3.08 mill/uL (4.70-6.10); White Blood Cell (WBC) Count 9.8 thou/uL (4.8-10.8)
[2017-03-08 05:46] LABS: Anion Gap 12 mmol/L (10-20); BUN (Urea Nitrogen) 16 mg/dL (8.4-25.7); Calc. Creatinine Clearance 84 mL/min (70-130); Calcium 8.6 mg/dL (7.8-10.44); Carbon Dioxide 20 mmol/L (23-31); Chloride 109 mmol/L (98-107); Estimated GFR-MDRD 63
[2017-03-08] MEDS: Finasteride 5 MG TAB PO SCH (08:49)
[2017-03-08] MEDS: busPIRone HCl 5 MG TAB PO SCH ×2 (08:49→20:35)
[2017-03-08] MEDS: Furosemide 20 MG TAB PO SCH (08:49)
[2017-03-08] MEDS: Tamsulosin HCl 0.4 MG CAP PO SCH ×2 (08:49→20:34)
[2017-03-08] MEDS: FLUoxetine HCl 20 MG CAP PO SCH (08:49)
[2017-03-08] MEDS: levETIRAcetam 500 MG TAB PO SCH ×2 (08:49→20:35)
[2017-03-08] MEDS: Lisinopril 5 MG TAB PO SCH (08:50)
[2017-03-08] MEDS: Carvedilol 6.25 MG TAB PO SCH (08:50)
[2017-03-08] MEDS: Heparin 5,000 UNITS/ML VIAL SC SCH ×3 (08:50→20:35)
[2017-03-08] MEDS: Aspirin 325 mg Enteric Coated Tablet PO SCH (08:50)
--- NOTE | 2017-03-08 13:49 | PDOC.PN ---
- Subjective Encounter Start Date: 03/08/17 Encounter Start Time: 10:55 -: old records requested/rev PT seen and exmained, chart reviewe din its entirety. Pt did ok overnight, no F /C, no N/V/D/c, no CP or SON. breatihng he says is back at baseline, unsure how reliable. Pt states he hasnt walke din a long time. will ask PT to evaluate - Objective Resuscitation Status: Resuscitation Status DNR:Do Not Resuscitate MAR Reviewed: Yes Vital Signs & Weight: Vital Signs (12 hours) Temp Pulse Resp BP BP Pulse Ox 03/08/17 08:45 98.6 F 65 20 125/60 95 03/08/17 08:09 98.6 F 65 20 03/08/17 04:00 97.4 F L 69 18 111/58 L 93 L Weight Weight 225 lb 12.8 oz I&O: 03/07/17 03/08/17 03/09/17 06:59 06:59 06:59 Intake Total 1380 900 Balance 1380 900 Result Diagrams: 03/08/17 04:14 03/08/17 04:14 Radiology Reviewed by me: Yes EKG Reviewed by me: Yes Phys Exam - Physical Examination Constitutional: NAD HEENT: PERRLA, moist MMs, sclera anicteric, oral pharynx no lesions Neck: no nodes, no JVD, supple, full ROM Respiratory: no wheezing, no rhonchi right posterior basilar crackles Cardiovascular: RRR, no significant murmur, no rub Gastrointestinal: soft, non-tender, no distention, positive bowel sounds Musculoskeletal: no edema, pulses present Lymphatic: no nodes Psychiatric: normal affect, A&O x 3 Deviation from normal: slow to answer Skin: no rash, normal turgor, cap refill <2 seconds Dx/Plan (1) RAPHAEL (acute kidney injury) Code(s): N17.9 - ACUTE KIDNEY FAILURE, UNSPECIFIED Status: Resolved (2) Abdominal pain Code(s): R10.9 - UNSPECIFIED ABDOMINAL PAIN Status: Resolved Qualifiers: Abdominal location: right lower quadrant Qualified Code(s): R10.31 - Right lower quadrant pain Comment: CT scan negative (3) [id number] renal failure Code(s): N17.9 - ACUTE KIDNEY FAILURE, UNSPECIFIED; N18.9 - CHRONIC KIDNEY DISEASE, UNSPECIFIED Status: Acute Qualifiers: Acute renal failure type: with acute tubular necrosis Chronic kidney disease stage: stage 2 (mild) Qualified Code(s): N17.0 - Acute kidney failure with tubular necrosis; N18.2 - Chronic kidney disease, stage 2 (mild); N18.2 - Chronic kidney disease, stage 2 (mild) Comment: Improved with IV fluids, back to baseline (4) Balance disorder Code(s): R26.89 - OTHER ABNORMALITIES OF GAIT AND MOBILITY Status: Chronic (5) Metabolic encephalopathy Code(s): G93.41 - METABOLIC ENCEPHALOPATHY Status: Acute Comment: secondary to pneumonia and sepsis (6) Sepsis Code(s): A41.9 - SEPSIS, UNSPECIFIED ORGANISM Status: Acute Qualifiers: Sepsis type: sepsis due to unspecified organism Qualified Code(s): A41.9 - Sepsis, unspecified organism (7) BPH (benign prostatic hyperplasia) Code(s): N40.0 - BENIGN PROSTATIC HYPERPLASIA WITHOUT LOWER URINRY TRACT SYMP Status: Chronic (8) HTN (hypertension) Code(s): I10 - ESSENTIAL (PRIMARY) HYPERTENSION Status: Chronic Qualifiers: (9) S/P CABG (coronary artery bypass graft) Code(s): Z95.1 - PRESENCE OF AORTOCORONARY BYPASS GRAFT Status: Chronic (10) Schizophrenia Code(s): F20.9 - SCHIZOPHRENIA, UNSPECIFIED Status: Chronic Qualifiers: Schizophrenia type: unspecified Qualified Code(s): F20.9 - Schizophrenia, unspecified (11) Systolic and diastolic CHF, chronic Code(s): I50.42 - CHRONIC COMBINED SYSTOLIC AND DIASTOLIC HRT FAIL Status: Chronic (12) Right lower lobe pneumonia Code(s): J18.1 - LOBAR PNEUMONIA, UNSPECIFIED ORGANISM Status: Acute Qualifiers: Pneumonia type: due to unspecified organism Qualified Code(s): J18.1 - Lobar pneumonia, unspecified organism Comment: HCAP, possible aspiration. Present on admit. Change to Clinda and levofox, watch WBC, O2 requirements. BAck to NH in 1-2 days - Plan * .
[2017-03-08] MEDS: Clindamycin/D5W 600 MG in Premix Bag 1 BAG IVPB SCH ×2 (14:29→20:34)
[2017-03-08 15:39] LABS: Vancomycin, Trough 11.7 ug/mL
[2017-03-08] MEDS: Atorvastatin Calcium 40 MG TAB PO SCH (20:34)
[2017-03-09] MEDS: Clindamycin/D5W 600 MG in Premix Bag 1 BAG IVPB SCH ×3 (05:55→21:07)
[2017-03-09 06:30] LABS: #Eosinphils 0.2 thou/uL (0.0-0.7); #Monocytes 0.5 thou/uL (0.11-0.59); #Neutrophils 5.2 thou/uL (1.40-6.50); %Basophils 0.6 % (0.0-1.0); %Eosinophils 3.2 % (0.0-10.0); %Lymphocytes 14.4 % (21.0-51.0); %Monocytes 6.7 % (0.0-10.0); Hematocrit 30.3 % (42.0-52.0); Mean Platelet Volume 8.4 fL (7.4-10.4); Red Blood Cell (RBC) Count 3.17 mill/uL (4.70-6.10); White Blood Cell (WBC) Count 6.9 thou/uL (4.8-10.8)
[2017-03-09 06:47] LABS: Anion Gap 12 mmol/L (10-20); BUN (Urea Nitrogen) 11 mg/dL (8.4-25.7); Calc. Creatinine Clearance 100 mL/min (70-130); Calcium 8.7 mg/dL (7.8-10.44); Carbon Dioxide 24 mmol/L (23-31); Chloride 107 mmol/L (98-107); Estimated GFR-MDRD 77; Magnesium 1.7 mg/dL (1.6-2.6)
[2017-03-09] MEDS: levETIRAcetam 500 MG TAB PO SCH ×2 (09:21→21:07)
[2017-03-09] MEDS: Tamsulosin HCl 0.4 MG CAP PO SCH ×2 (09:21→21:07)
[2017-03-09] MEDS: Carvedilol 6.25 MG TAB PO SCH (09:21)
[2017-03-09] MEDS: Furosemide 20 MG TAB PO SCH (09:22)
[2017-03-09] MEDS: Lisinopril 5 MG TAB PO SCH (09:22)
[2017-03-09] MEDS: FLUoxetine HCl 20 MG CAP PO SCH (09:22)
[2017-03-09] MEDS: Finasteride 5 MG TAB PO SCH (09:22)
[2017-03-09] MEDS: Aspirin 325 mg Enteric Coated Tablet PO SCH (09:23)
[2017-03-09] MEDS: busPIRone HCl 5 MG TAB PO SCH ×2 (09:23→21:07)
[2017-03-09] MEDS: Heparin 5,000 UNITS/ML VIAL SC SCH ×3 (09:23→21:10)
--- NOTE | 2017-03-09 12:44 | PDOC.PN ---
- Subjective Encounter Start Date: 03/09/17 Encounter Start Time: 11:10 Pt seen and examined at bedside. questions answered, plan communicated. Pt plans to return to [facility] when discharged. Pt denies f/C, no N/V/D/C, still on O2 2L NC. deneis Cough or SOB, hasnt walked in some time. Awaiting PT eval 10 point ROS performed and neg for all systems except as per HPI - Objective Resuscitation Status: Resuscitation Status DNR:Do Not Resuscitate MAR Reviewed: Yes Vital Signs & Weight: Vital Signs (12 hours) Temp Pulse Resp BP BP BP Pulse Ox 03/09/17 12:00 97.2 F L 61 17 116/58 L 93 L 03/09/17 09:22 66 130/59 L 03/09/17 09:21 130/59 L 03/09/17 08:35 98 F 66 18 96 03/09/17 08:05 98 F 66 18 130/59 L 96 03/09/17 04:00 98.3 F 60 20 117/58 L 95 Weight Weight 225 lb 1.6 oz I&O: 03/08/17 03/09/17 03/10/17 06:59 06:59 06:59 Intake Total 900 1000 Balance 900 1000 Result Diagrams: 03/09/17 05:40 03/09/17 05:40 Radiology Reviewed by me: Yes EKG Reviewed by me: Yes Phys Exam - Physical Examination Constitutional: NAD HEENT: PERRLA, moist MMs, sclera anicteric, oral pharynx no lesions Neck: no nodes, no JVD, supple, full ROM Respiratory: no wheezing, no rhonchi right posterior qand basilar crackles in the base Cardiovascular: RRR, no significant murmur, no rub Gastrointestinal: soft, non-tender, no distention, positive bowel sounds Musculoskeletal: no edema, pulses present Neurological: non-focal, normal sensation, moves all 4 limbs Lymphatic: no nodes Psychiatric: normal affect, A&O x 3 Skin: no rash, normal turgor, cap refill <2 seconds Dx/Plan (1) RAPHAEL (acute kidney injury) Code(s): N17.9 - ACUTE KIDNEY FAILURE, UNSPECIFIED Status: Resolved (2) Abdominal pain Code(s): R10.9 - UNSPECIFIED ABDOMINAL PAIN Status: Resolved Qualifiers: Abdominal location: right lower quadrant Qualified Code(s): R10.31 - Right lower quadrant pain Comment: CT scan negative (3) Nzlwb-bo-imbdxdu renal failure Code(s): N17.9 - ACUTE KIDNEY FAILURE, UNSPECIFIED; N18.9 - CHRONIC KIDNEY DISEASE, UNSPECIFIED Status: Chronic Qualifiers: Acute renal failure type: with acute tubular necrosis Chronic kidney disease stage: stage 2 (mild) Qualified Code(s): N17.0 - Acute kidney failure with tubular necrosis; N18.2 - Chronic kidney disease, stage 2 (mild); N18.2 - Chronic kidney disease, stage 2 (mild) Comment: Improved with IV fluids, back to baseline (4) Balance disorder Code(s): R26.89 - OTHER ABNORMALITIES OF GAIT AND MOBILITY Status: Chronic (5) Metabolic encephalopathy Code(s): G93.41 - METABOLIC ENCEPHALOPATHY Status: Resolved Comment: secondary to pneumonia and sepsis. said back to baseline (6) Sepsis Code(s): A41.9 - SEPSIS, UNSPECIFIED ORGANISM Status: Resolved Qualifiers: Sepsis type: sepsis due to unspecified organism Qualified Code(s): A41.9 - Sepsis, unspecified organism (7) BPH (benign prostatic hyperplasia) Code(s): N40.0 - BENIGN PROSTATIC HYPERPLASIA WITHOUT LOWER URINRY TRACT SYMP Status: Chronic (8) HTN (hypertension) Code(s): I10 - ESSENTIAL (PRIMARY) HYPERTENSION Status: Chronic Qualifiers: (9) S/P CABG (coronary artery bypass graft) Code(s): Z95.1 - PRESENCE OF AORTOCORONARY BYPASS GRAFT Status: Chronic (10) Schizophrenia Code(s): F20.9 - SCHIZOPHRENIA, UNSPECIFIED Status: Chronic Qualifiers: Schizophrenia type: unspecified Qualified Code(s): F20.9 - Schizophrenia, unspecified (11) Systolic and diastolic CHF, chronic Code(s): I50.42 - CHRONIC COMBINED SYSTOLIC AND DIASTOLIC HRT FAIL Status: Chronic (12) Right lower lobe pneumonia Code(s): J18.1 - LOBAR PNEUMONIA, UNSPECIFIED ORGANISM Status: Acute Qualifiers: Pneumonia type: due to unspecified organism Qualified Code(s): J18.1 - Lobar pneumonia, unspecified organism Comment: HCAP, possible aspiration. Present on admit. Change to Clinda and levofox, watch WBC, O2 requirements. BAck to NH in 1-2 days - Plan cont current plan of care, plan discussed w/ family, continue antibiotics, PT/OT , out of bed/ambulate * . discharge anticipated tomorrow
[2017-03-09] MEDS ORDERED: Sodium Chloride 0.9% 10 ML ONE (21:04)
[2017-03-09] MEDS: Atorvastatin Calcium 40 MG TAB PO SCH (21:07)
[2017-03-10] MEDS ORDERED: Sodium Chloride 0.9% 10 ML ONE (05:21)
[2017-03-10] MEDS: Clindamycin/D5W 600 MG in Premix Bag 1 BAG IVPB SCH (05:21)
[2017-03-10] MEDS: levETIRAcetam 500 MG TAB PO SCH (08:54)
[2017-03-10] MEDS: Carvedilol 6.25 MG TAB PO SCH (08:54)
[2017-03-10] MEDS: Aspirin 325 mg Enteric Coated Tablet PO SCH (08:54)
[2017-03-10] MEDS: Finasteride 5 MG TAB PO SCH (08:54)
[2017-03-10] MEDS: Tamsulosin HCl 0.4 MG CAP PO SCH (08:54)
[2017-03-10] MEDS: FLUoxetine HCl 20 MG CAP PO SCH (08:54)
[2017-03-10] MEDS: Lisinopril 5 MG TAB PO SCH (08:56)
[2017-03-10] MEDS: Furosemide 20 MG TAB PO SCH (08:56)
[2017-03-10] MEDS: busPIRone HCl 5 MG TAB PO SCH (08:57)
[2017-03-10] MEDS: Heparin 5,000 UNITS/ML VIAL SC SCH (08:57)
[2017-03-10 12:43] VITALS: BP 122/58; TEMP 98.7
--- NOTE | 2017-03-10 13:42 | DIS ---
DATE OF ADMISSION: 03/06/2017 DATE OF DISCHARGE: 03/10/2017 Patient is a resident of [facility]. PRIMARY CARE PHYSICIAN: Siva Reyna D.O. DISCHARGE DIAGNOSES: 1. Right lower lobe pneumonia. 2. Acute on chronic hypoxic respiratory failure. 3. Aspiration pneumonia ruled out. 4. Sepsis, present on admission. 5. Benign prostatic hypertrophy. 6. Essential hypertension. 7. Coronary artery disease. 8. Status post coronary artery bypass grafting in the past. 9. Schizophrenia. 10. Chronic combined systolic and diastolic congestive heart failure. 11. Chronic balance disorder of unknown specificity. 12. Metabolic encephalopathy, resolved. CONSULTATIONS: None. PROCEDURES: None. HOSPITAL COURSE: Mr. Huff is a 71-year-old male who is a resident at [facility] in [facility] for balance problems and inability to take care of himself. He was transferred to our ER for eval uation on 03/06/2017. We noted the blood pressure was running low and he was not acting like himself . EMS arrived, temperature was 101.5 and systolic blood pressure in the 70s. In the ER, the patient was evaluated and found to have right lower lobe pneumonia and sepsis, we were consulted for admission. HOSPITAL COURSE: The patient was seen and examined by Dr. Shearer. He started broad spectrum an tibiotics with vancomycin and Zosyn. He was admitted to the telemetry floor and responded well to fl uid resuscitation. Overnight, 03/06/2017 to 03/07/2017, the patient improved. Blood pressure remained stable and fever disappeared. He was continued on the same antibiotics and blood culture remained negative. He did h ave some hypomagnesemia and that was replaced. He has no chest pain or change in cardiac enzymes. O nce blood pressure normalizes, regular medicines restarted. On 03/08/2017, I took over. The patient was doing better, he was more awake and alert but still some what confused. He had no family at bedside at the time and was continued on the current management. Antibiotics were streamlined to levofloxacin plus clindamycin. On 03/09/2017, I met with his and family. Patient was basically back to his baseline mental sta tus, request PT/OT evaluation and continue the antibiotics. Today, 03/10/2017, the metabolic profile is normal. He is feeling better. He is afebrile and tolera ting antibiotics. He was changed to p.o. antibiotics with levofloxacin and discharged back to [facility] for skilled therapy. PHYSICAL EXAMINATION: The patient was seen and examined on the day of discharge. Discharge plan and disposition were discussed with the patient face to face at the bedside. DISCHARGE MEDICATIONS: 1. Aspirin 325 mg daily. 2. Atorvastatin 80 mg at bedtime. 3. Buspirone 5 mg p.o. b.i.d. 4. Carvedilol 6.25 mg p.o. b.i.d. 5. Finasteride 5 mg p.o. daily. 6. Fluoxetine 60 mg p.o. daily. 7. Furosemide 20 mg daily. 8. Robitussin DM 10 mL p.o. q.6 hours p.r.n., cough. 9. Keppra 500 mg p.o. b.i.d. 10. Lisinopril 5 mg daily. 11. Loperamide 2 mg as needed for diarrhea. 12. MiraLax 17 grams daily. 13. Flomax 0.4 mg p.o. b.i.d. 14. Gabapentin 300 mg p.o. b.i.d. 15. Levofloxacin 750 mg p.o. daily for 3 more days, new prescription. 16. Risperdal 1 mg p.o. at bedtime. FOLLOWUP APPOINTMENTS: With primary care physician next available. DISCHARGE INSTRUCTIONS: The patient will be discharged to [facility] in [place]. DISCHARGE CONDITION: Good. DISCHARGE ACTIVITY: Per cardiopulmonary limits. DISCHARGE DIET: Heart healthy.
== END 2017-03-10 14:21 | DRG 871 ==
LOC: ERS 12:22 → 2NO 15:05
PROVIDERS: ADMIT Internal Medicine; ATTEND Internal Medicine
DX: A41.9 Sepsis, unspecified organism (principal); J18.9 Pneumonia, unspecified organism; N17.0 Acute kidney failure with tubular necrosis; J96.21 Acute and chronic respiratory failure with hypoxia; I13.0 Hypertensive heart and chronic kidney disease with heart failure and stage 1 through stage 4 chronic kidney disease, or unspecified chronic kidney disease; G93.41 Metabolic encephalopathy; I50.42 Chronic combined systolic (congestive) and diastolic (congestive) heart failure; Y95 Nosocomial condition; F20.9 Schizophrenia, unspecified; I25.10 Atherosclerotic heart disease of native coronary artery without angina pectoris; Z95.1 Presence of aortocoronary bypass graft; G47.33 Obstructive sleep apnea (adult) (pediatric); E78.5 Hyperlipidemia, unspecified; N40.0 Benign prostatic hyperplasia without lower urinary tract symptoms; R26.89 Other abnormalities of gait and mobility; N18.2 Chronic kidney disease, stage 2 (mild); I73.9 Peripheral vascular disease, unspecified; E83.42 Hypomagnesemia; Z86.73 Personal history of transient ischemic attack (TIA), and cerebral infarction without residual deficits
CPT/HCPCS: 36415; 51701; 71010; 80048; 80053; 80202; 81003; 82553; 83690; 83735; 83880; 84484; 85025; 85610; 85730; 93005; 96365; 96367; A4216; J1644; J1956; J2543; J3370; J3475; J3490; J7050

== ENCOUNTER 2018-01-12 14:56 | Inpatient (IN) | payer MEDICARE ==
[2018-01-12 15:38] LABS: #Basophils 0.1 thou/uL (0.0-0.2); #Eosinphils 0.2 thou/uL (0.0-0.7); #Lymphocytes 1.2 thou/uL (1.20-3.40); #Monocytes 0.6 thou/uL (0.11-0.59); #Neutrophils 4.6 thou/uL (1.40-6.50); %Basophils 1.1 % (0.0-1.0); %Eosinophils 2.4 % (0.0-10.0); %Monocytes 8.9 % (0.0-10.0); %Neutrophils 69.6 % (42.0-75.0); Hemoglobin 12.6 g/dL (14.0-18.0); Mean Corpuscular HGB CONC 31.9 g/dL (32.0-36.0); Mean Corpuscular Hemoglobin 30.1 pg (27.0-31.0); Mean Corpuscular Volume 94.2 fL (78.0-98.0); Mean Platelet Volume 8.6 fL (7.4-10.4); Platelet Count 194 thou/uL (130-400); RBC Distribution Width 13.1 % (11.5-14.5); White Blood Cell (WBC) Count 6.7 thou/uL (4.8-10.8)
--- NOTE | 2018-01-12 15:50 | RAD ---
CHEST ONE VIEW: 01/12/18 INDICATION: Bradycardia. COMPARISON: Prior exam dated 03/06/17. FINDINGS: Dual lead pacemaker is stable. Sternotomy changes are similar. Vascular calcification of the aortic a rch are unchanged. The lungs are clear. No pleural effusion or pneumothorax is evident. There is stab le postsurgical changes of a left distal clavicle excision. No acute osseous abnormality is evident. IMPRESSION: No acute cardiopulmonary abnormality. POS: [facility]
[2018-01-12 16:04] LABS: ALT (SGPT) 20 U/L (8-55); AST (SGOT) 20 U/L (5-34); Albumin 3.6 g/dL (3.4-4.8); Alkaline Phosphatase 103 U/L (40-150); Anion Gap 9 mmol/L (10-20); BUN (Urea Nitrogen) 21 mg/dL (8.4-25.7); Bilirubin, Total 0.9 mg/dL (0.2-1.2); Calc. Creatinine Clearance 0 mL/min (70-130); Calcium 9.3 mg/dL (7.8-10.44); Carbon Dioxide 31 mmol/L (23-31); Chloride 105 mmol/L (98-107); Estimated GFR-MDRD 47; Globulin 3.4 g/dL (2.4-3.5); Glucose 107 mg/dL (83-110); Potassium 3.8 mmol/L (3.5-5.1); Sodium 141 mmol/L (136-145)
[2018-01-12 16:05] LABS: CKMB 1.9 ng/mL (0-6.6); Troponin I Less than 0.010 ng/mL (< 0.028)
[2018-01-12] MEDS ORDERED: Acetaminophen 325 MG TAB PO PRN (19:00)
--- NOTE | 2018-01-12 19:01 | CT ---
CT HEAD NONCONTRAST: 01/12/18 HISTORY: Altered mental status. Blurry vision. COMPARISON: 01/17/17. FINDINGS: There is no evidence of acute intracranial hemorrhage or infarct. Diffuse cortical atrophy, old chron ic ischemic small vessel disease, and lacunar infarcts are again demonstrated. There is no mass effec t or shift of midline structures. The visualized paranasal sinuses remain well aerated. IMPRESSION: Chronic type findings are stable. No acute intracranial abnormalities are demonstrated. POS: [facility]
[2018-01-12 20:23] VITALS: BMI 33.0
[2018-01-12] MEDS: busPIRone HCl 5 MG TAB PO SCH (21:04)
[2018-01-12] MEDS: Heparin 5,000 UNITS/ML VIAL SC SCH (21:04)
[2018-01-12] MEDS: Atorvastatin Calcium 40 MG TAB PO SCH (21:04)
[2018-01-12] MEDS: risperiDONE 1 MG TAB PO SCH (21:04)
--- NOTE | 2018-01-12 23:49 | HP ---
CHIEF COMPLAINT: Bradycardia. HISTORY OF PRESENT ILLNESS: Patient is a very pleasant 72-year-old male with past medical history of coronary artery disease status post bypass. Patient also has a history of arrhythmias. He does hav e a pacemaker which was initially placed on his left side of the chest; however, it was removed becau se it had a kink and then he had another one placed in 04/1999 in his right chest wall. This was don carmen at the [facility] who presented to the hospital with generalized weakness and bradycardia. The patient's w salomón and daughter, who were at the bedside states that patient was in his normal health yesterday; how ever, this morning he woke up and it just did not feel well, sat at the edge of the bed as longer golden n he normally does. The patient then ate his brunch around 11:45. Prior to that, he took all his me dications including Coreg 25 mg and then after he ate his brunch, his health care provider came into do some vitals on him. The healthcare provider found the patient's blood pressure was very low systo lics were in the 90s and his heart rate was not being registered. She took vitals twice; however, wa s unable to register the heart rate. The patient was feeling dizzy and lightheaded. He was not havi ng any chest pain or shortness of breath. At this time, EMS was called and the patient was brought i nto the hospital for further evaluation. The patient is just a poor historian. All the history was obtained from the daughter and the who was at the bedside. Patient according to the has be en compliant with his medication. There were no recent changes in his medications. Denies any diarr hea, any nausea, vomiting, any chest pain or shortness of breath. PAST MEDICAL HISTORY: He has a history of recurrent falls, CAD, history of CVA with some left-sided weakness. He has a history of heart failure with EF of 40-45%, obstructive sleep apnea, chronic kidn ey disease, dyslipidemia, history of schizophrenia, peripheral vascular disease, history of prostate cancer status. He has a history of pneumonia. PAST SURGICAL HISTORY: He has had a bypass. He has had a left elbow repair, cholecystectomy, prosta tectomy, skin cancer removal and insertion and removal of pacemaker twice. CURRENT MEDICATIONS: His current medications which I reviewed with the patient and the family, Lasix 20 mg b.i.d., finasteride 5 mg daily, risperidone 2 mg to take one and a half pill daily, atorvastat in 80 mg daily, carvedilol 25 mg daily, buspirone 15 mg at bedtime, fluoxetine 40 mg daily, and aspir in 81 mg daily. ALLERGIES: Patient is allergic to TETRACYCLINE, SULFONAMIDE and SULFA. REVIEW OF SYSTEMS: All negative except for the ones mentioned above in the HPI. SOCIAL HISTORY: The patient has a remote history of tobacco abuse; however, no alcohol or drug use. He is a and gets most of his care at the [facility] and he normally walks with a walker. Anton morales gets up with assistance and is able to walk short distance; however, requires minimal assistance. PHYSICAL EXAMINATION: VITAL SIGNS: He is afebrile at 97.4, blood pressure 144/66, heart rate of actually 60, 96% on room a ir and he has 16 respirations. GENERAL: He is awake, alert, oriented x3. Does not appear in any distress. CARDIOVASCULAR: S1, S2 present. He does have a significant mid chest sternum scar. He does have ol d pacemaker scar on his left chest wall. He does have a right pacemaker. No erythema or redness not ed. ABDOMEN: Soft, nontender. Bowel sounds are present x2. LUNGS: Clear upon auscultation, no rhonchi or wheezes noted. EXTREMITIES: His lower extremities, he does have +2 lower extremity pitting edema. His left lower e xtremity is more larger than the right. Pedal pulses were very faint. I will tell the nurse to eval uate via Doppler. Neurovascular brooks, no focal deficits noted. SKIN: No significant cuts or bruises noted. LABORATORY DATA AND IMAGING DATA: Laboratory results are as of the following: WBC of 6.7, hemoglobi n of 12.6, hematocrit of 39.6, platelets of 194. Chemistry: Sodium 141, potassium of 3.8, BUN of 31 , creatinine of 3.8. BUN of 21 and creatinine of 1.48, which is elevated from his baseline of 1.20. His urine is pending. He did have a chest x-ray, which did not indicate any acute abnormalities. Anton morales also had a CT brain which indicated just chronic type changes, no acute intracranial abnormalities. ASSESSMENT AND PLAN: The patient is a very pleasant 72-year-old male who presents to the hospital wi th complaints of bradycardia. 1. Symptomatic bradycardia. Patient's heart rate today was very low, but this could be secondary to his patient taking carvedilol this morning. I will interrogate his pacemaker and also consult Cardi ology. The patient also might need Electrophysiology evaluation which will be determined after the i nterrogation. Patient's initial troponin was negative. He currently is having no chest pain. We wi ll admit the patient in inpatient telemetry and will hold the carvedilol and we will continue to fouzia tor the patient. 2. Acute kidney injury. This could be secondary to his recent hypotension, could be prerenal and br adycardia. We will continue to monitor. I am hoping this will improve tomorrow. 3. Systolic heart failure, possibly systolic. We will continue patient's home medication. We will hold the Lasix for right now and also if his creatinine does not improve, may consider getting a Dopp ler or further evaluation. 4. Significant lower extremity edema. His left lower extremity has more edema than the right. We w ill get Dopplers to rule out any DVT. 5. Deep venous thrombosis prophylaxis. We will put patient on subcu heparin.
[2018-01-13 01:33] LABS: Bilirubin Negative (Negative); Blood, Urine Negative (Negative); Clarity CLEAR (Clear); Glucose, Urine (Dipstick) Negative (Negative); Leukocyte Negative (Negative); Nitrite Negative (Negative); Protein, Urine (Dipstick) Negative (Neg-Trace); Specific Gravity, Urine 1.022 (1.002-1.036); pH, Urine 6.5 (5.0-9.0)
[2018-01-13 04:53] LABS: #Basophils 0.1 thou/uL (0.0-0.2); #Eosinphils 0.2 thou/uL (0.0-0.7); #Lymphocytes 1.6 thou/uL (1.20-3.40); #Monocytes 0.5 thou/uL (0.11-0.59); %Basophils 1.3 % (0.0-1.0); %Eosinophils 3.1 % (0.0-10.0); %Lymphocytes 29.3 % (21.0-51.0); %Monocytes 9.9 % (0.0-10.0); %Neutrophils 56.4 % (42.0-75.0); Hemoglobin 11.9 g/dL (14.0-18.0); Mean Corpuscular HGB CONC 31.7 g/dL (32.0-36.0); Mean Corpuscular Hemoglobin 30.2 pg (27.0-31.0); Mean Corpuscular Volume 95.1 fL (78.0-98.0); Mean Platelet Volume 8.5 fL (7.4-10.4); Platelet Count 184 thou/uL (130-400); RBC Distribution Width 13.1 % (11.5-14.5); Red Blood Cell (RBC) Count 3.95 mill/uL (4.70-6.10); White Blood Cell (WBC) Count 5.3 thou/uL (4.8-10.8)
[2018-01-13 05:11] LABS: Anion Gap 10 mmol/L (10-20); BUN (Urea Nitrogen) 20 mg/dL (8.4-25.7); Calc. Creatinine Clearance 82 mL/min (70-130); Carbon Dioxide 27 mmol/L (23-31); Chloride 108 mmol/L (98-107); Estimated GFR-MDRD 59; Glucose 82 mg/dL (83-110); Potassium 3.7 mmol/L (3.5-5.1); Sodium 141 mmol/L (136-145)
--- NOTE | 2018-01-13 08:48 | ULT ---
LEFT LOWER EXTREMITY VENOUS DUPLEX EXAM: HISTORY: Left leg edema for 2 weeks. FINDINGS: Real-time color Doppler evaluation of the left lower extremity was performed from groin to calf. Thi s includes evaluation of the common femoral, superficial and profunda femoral, saphenous, popliteal, and posterior tibial veins. This shows a patent deep venous system. There is normal compressibility and augmentation. There is no evidence of DVT. IMPRESSION: No evidence of deep vein thrombosis of the left lower extremity. POS: [facility]
[2018-01-13] MEDS ORDERED: Furosemide 20 MG TAB PO SCH (09:00)
[2018-01-13] MEDS: Finasteride 5 MG TAB PO SCH (09:53)
[2018-01-13] MEDS: FLUoxetine HCl 20 MG CAP PO SCH (09:54)
[2018-01-13] MEDS: busPIRone HCl 5 MG TAB PO SCH ×2 (09:54→20:31)
[2018-01-13] MEDS: Aspirin 325 mg Enteric Coated Tablet PO SCH (09:55)
[2018-01-13] MEDS: Heparin 5,000 UNITS/ML VIAL SC SCH ×2 (09:55→20:31)
--- NOTE | 2018-01-13 11:01 | PQF ---
CLINICAL DOCUMENTATION IMPROVEMENT CLARIFICATION FORM: ICD-10 Updated PLEASE DO AN ADDENDUM TO THE PROGRESS NOTE WITH ANY DOCUMENTATION UPDATES OR ADDITIONS AND CARRY THROUGH TO DC SUMMARY. THANK YOU. DATE: 01/13/18 ATTN : DR. BROWN Please exercise your independent, professional judgment in responding to the clarification form. Clinical indicators are provided on the bottom of this form for your review Please check appropriate box(s): HEART FAILURE: A. TYPE: [ ] Systolic / HFrEF [ ] Diastolic / HFpEF [ ] Combined Systolic / Diastolic B. ACUITY [ ] Acute [ ] Acute on Chronic [ ] Chronic [ ] Other diagnosis [ ] Unable to determine In addition, please specify: Present on Admission (POA): [ ] Yes [ ] No [ ] Unable to determine For continuity of documentation, please document condition throughout progress notes and discharge summary. Thank You. CLINICAL INDICATORS - SIGNS / SYMPTOMS / LABS H&P: "SYSTOLIC HEART FAILURE, POSSIBLY SYSTOLIC" ER NOTE: "PITTING EDEMA TO BILATERAL FEET" RISKS: H/O CHF CKD TREATMENT: SUPPLEMENTAL OXYGEN (ER NOTE) LASIX (HOME MED PER ER NOTE) CARDIOLOGY CONSULT TELEMETRY MONITORING (This form is maintained as a part of the permanent medical record) 2014 [employer]. All Rights Reserved [email or web address] Office: [phone] [facility]
--- NOTE | 2018-01-13 14:46 | PDOC.PN ---
- Subjective Encounter Start Date: 01/13/18 Encounter Start Time: 09:30 -: old records requested/rev Pt seen and examined, chart reviewed in its entirety, this is my first visit with this patient Follow up for acute on chornic systolic CHF, symptomatic bradycardia, pacemaker present No F/C, no N/V/D/C, no CP or SOB, no cough or sputum production. Pacer interrogated, no bradycardia, has frequent PVCs that arent transmitting always All systems reviewed and neg except as stated above - Objective Resuscitation Status: Resuscitation Status DNR:Do Not Resuscitate MAR Reviewed: Yes Vital Signs & Weight: Vital Signs (12 hours) Temp Pulse Pulse Resp BP BP Pulse Ox 01/13/18 12:15 97.9 F 61 14 150/63 H 94 L 01/13/18 11:30 60 161/70 H 01/13/18 07:35 97.3 F L 66 14 138/65 95 01/13/18 04:17 97.7 F 70 17 141/64 H 94 L Pulse Ox 01/13/18 12:15 01/13/18 11:30 96 01/13/18 07:35 01/13/18 04:17 Weight Weight 231 lb 14.4 oz I&O: 01/12/18 01/13/18 01/14/18 06:59 06:59 06:59 Intake Total 100 Output Total 150 Balance -50 Result Diagrams: 01/13/18 04:38 01/13/18 04:38 Radiology Reviewed by me: Yes EKG Reviewed by me: Yes Phys Exam - Physical Examination Constitutional: NAD HEENT: PERRLA, moist MMs, sclera anicteric, oral pharynx no lesions Neck: no nodes, no JVD, supple, full ROM Respiratory: no wheezing, no rales, no rhonchi, clear to auscultation bilateral Cardiovascular: RRR, no significant murmur, no rub Gastrointestinal: soft, non-tender, no distention, positive bowel sounds Musculoskeletal: edema present Neurological: non-focal, normal sensation, moves all 4 limbs Lymphatic: no nodes Psychiatric: normal affect, A&O x 3 Skin: no rash, normal turgor, cap refill <2 seconds Dx/Plan (1) Bradycardia Code(s): R00.1 - BRADYCARDIA, UNSPECIFIED Status: Ruled-out Comment: no bradycardia (2) [id number]-rc-nwowlnw renal failure Code(s): N17.9 - ACUTE KIDNEY FAILURE, UNSPECIFIED; N18.9 - CHRONIC KIDNEY DISEASE, UNSPECIFIED Status: Resolved Qualifiers: Acute renal failure type: unspecified Chronic kidney disease stage: stage 3 (moderate) Qualified Code(s): N17.9 - Acute kidney failure, unspecified; N18.3 - Chronic kidney disease, stage 3 (moderate) Comment: Improved with IV fluids, back to baseline (3) BPH (benign prostatic hyperplasia) Code(s): N40.0 - BENIGN PROSTATIC HYPERPLASIA WITHOUT LOWER URINRY TRACT SYMP Status: Chronic Qualifiers: Lower urinary tract symptom presence: symptoms present Lower urinary tract symptom detail: incomplete bladder emptying Qualified Code(s): N40.1 - Benign prostatic hyperplasia with lower urinary tract symptoms; R39.14 - Feeling of incomplete bladder emptying (4) CAD (coronary artery disease) Code(s): I25.10 - ATHSCL HEART DISEASE OF [place] CORONARY ARTERY W/O ANG PCTRS Status: Chronic Qualifiers: Coronary Disease-Associated Artery/Lesion type: [place] artery [place] vs. transplanted heart: [place] heart Associated angina: without angina Qualified Code(s): I25.10 - Atherosclerotic heart disease of [place] coronary artery without angina pectoris (5) CKD (chronic kidney disease), stage III Code(s): N18.3 - CHRONIC KIDNEY DISEASE, STAGE 3 (MODERATE) Status: Chronic (6) HLD (hyperlipidemia) Code(s): E78.5 - HYPERLIPIDEMIA, UNSPECIFIED Status: Chronic Qualifiers: (7) Acute on chronic combined systolic and diastolic CHF (congestive heart failure) Code(s): I50.43 - ACUTE ON CHRONIC COMBINED SYSTOLIC AND DIASTOLIC HRT FAIL Status: Acute - Plan cont current plan of care, PT/OT, geriatric social worker, respiratory therapy, out of bed/ambulate * .
[2018-01-13] MEDS ORDERED: Carvedilol 6.25 MG TAB PO SCH (18:30)
[2018-01-13] MEDS: Atorvastatin Calcium 40 MG TAB PO SCH (20:31)
[2018-01-13] MEDS: risperiDONE 1 MG TAB PO SCH (20:32)
--- NOTE | 2018-01-13 22:52 | CON ---
DATE OF CONSULTATION: 01/13/2018 REASON FOR CONSULTATION: Lightheadedness, bradycardia per radial pulse, history of pacemaker. PRIMARY SQL PROGRAMMER: Dr. Dale Vergara. HISTORY OF PRESENT ILLNESS: Mr. Huff is a very pleasant 72-year-old gentleman with history of bypas s surgery in the past. He felt lightheaded this morning and then some family members took his pulse and noted to be low. He was brought to the hospital and admitted for observation. He says he has been having some trouble with his vision, but that is going on for about a month. He has no chest pain or pressure, no tightness. PAST MEDICAL HISTORY: 1. Previous bypass surgery. 2. History of congestive heart failure with ejection fraction 40%-45%. 3. Obstructive sleep apnea. 4. Peripheral vascular disease. PAST SURGICAL HISTORY: 1. Previous bypass surgery. 2. Left elbow repair. MEDICATIONS: He does not know it is listed as carvedilol 25 mg a day. He does not know fluoxetine, Lasix and Aspirin. ALLERGIES: TETRACYCLINE and SULFA. FAMILY HISTORY: Negative except what was mentioned in the HPI. SOCIAL HISTORY: Remote tobacco. No alcohol or drugs. He is a and gets most of his care at the [facility]. He did see Dr. Vergara in 2017 in the office. PHYSICAL EXAMINATION: GENERAL: This is a pleasant elderly gentleman in no distress. VITAL SIGNS: His blood pressure is 146/67, pulse 60, it is regular. EYES: Sclerae nonicteric. MOUTH: Mucous membranes moist. NECK: Supple, no lymphadenopathy. LUNGS: Clear, no wheezing, rales or rhonchi. CARDIAC: Normal S1, normal S2. I do not hear murmur, rub or gallop. ABDOMEN: Soft, obese, nontender. EXTREMITIES: No clubbing or cyanosis. There is only minimal edema. SKIN: Warm and dry. IMAGING DATA: EKG is mostly atrial paced ventricular sensed rhythm with occasional PVC. Pacemaker is checked, the thresholds are good. It is mostly atrial pacing with an occasional PVC, wh ich was appropriately sensed, rarely understands. ASSESSMENT: 1. Low radial pulse artifactual due to PVCs. 2. Normal pacemaker function. 3. Congestive heart failure, appears stable. 4. Previous coronary bypass grafting done 01/[address] Park. PLAN: 1. As mentioned, the pacemaker has been interrogated and functioning normally. The low radial pulse s artifactual due to PVCs. 2. We will order echocardiogram tomorrow. If that is stable, can be released home tomorrow.
[2018-01-14] MEDS: busPIRone HCl 5 MG TAB PO SCH (09:15)
[2018-01-14] MEDS: FLUoxetine HCl 20 MG CAP PO SCH (09:15)
[2018-01-14] MEDS: Finasteride 5 MG TAB PO SCH (09:16)
[2018-01-14] MEDS: Aspirin 325 mg Enteric Coated Tablet PO SCH (09:16)
[2018-01-14] MEDS: Carvedilol 6.25 MG TAB PO SCH ×2 (09:16→17:25)
[2018-01-14] MEDS: Heparin 5,000 UNITS/ML VIAL SC SCH (09:17)
[2018-01-14 16:08] VITALS: TEMP 98.1
[2018-01-14 17:28] VITALS: BP 139/78
== END 2018-01-14 20:51 | DRG 308 ==
LOC: ERS 14:56 → 2SW 18:47 → OBSVTOIN 18:59 → 2NO 19:54
PROVIDERS: ADMIT Internal Medicine; ATTEND Internal Medicine
DX: R00.1 Bradycardia, unspecified (principal); I50.43 Acute on chronic combined systolic (congestive) and diastolic (congestive) heart failure; I13.0 Hypertensive heart and chronic kidney disease with heart failure and stage 1 through stage 4 chronic kidney disease, or unspecified chronic kidney disease; N17.9 Acute kidney failure, unspecified; I69.354 Hemiplegia and hemiparesis following cerebral infarction affecting left non-dominant side; N40.0 Benign prostatic hyperplasia without lower urinary tract symptoms; I25.10 Atherosclerotic heart disease of native coronary artery without angina pectoris; N18.3 Chronic kidney disease, stage 3 (moderate); E78.00 Pure hypercholesterolemia, unspecified; G47.33 Obstructive sleep apnea (adult) (pediatric); I73.9 Peripheral vascular disease, unspecified; E78.5 Hyperlipidemia, unspecified; Z85.46 Personal history of malignant neoplasm of prostate; R29.6 Repeated falls; F20.9 Schizophrenia, unspecified
CPT/HCPCS: 36415; 70450; 71045; 80048; 80053; 81003; 82553; 84484; 85025; 93005; 93306; G8978-GP-CM; G8979-GP-CK; G8987-GO-CL; G8988-GO-CJ; J1644

== ENCOUNTER 2018-05-13 11:43 | Inpatient (IN) | payer MEDICARE ==
[2018-05-13 12:08] LABS: #Basophils 0.1 thou/uL (0.0-0.2); #Eosinphils 0.2 thou/uL (0.0-0.7); #Lymphocytes 1.1 thou/uL (1.20-3.40); #Monocytes 0.6 thou/uL (0.11-0.59); #Neutrophils 6.4 thou/uL (1.40-6.50); %Basophils 0.9 % (0.0-1.0); %Eosinophils 2.7 % (0.0-10.0); %Lymphocytes 12.8 % (21.0-51.0); %Monocytes 7.3 % (0.0-10.0); %Neutrophils 76.3 % (42.0-75.0); Hemoglobin 12.4 g/dL (14.0-18.0); Mean Corpuscular HGB CONC 32.3 g/dL (32.0-36.0); Mean Corpuscular Hemoglobin 30.8 pg (27.0-31.0); Mean Corpuscular Volume 95.4 fL (78.0-98.0); Mean Platelet Volume 8.6 fL (7.4-10.4); Platelet Count 191 thou/uL (130-400); RBC Distribution Width 12.9 % (11.5-14.5); Red Blood Cell (RBC) Count 4.02 mill/uL (4.70-6.10); White Blood Cell (WBC) Count 8.4 thou/uL (4.8-10.8)
--- NOTE | 2018-05-13 12:13 | CT ---
CT HEAD NONCONTRAST: INDICATIONS: Bilateral leg weakness, facial droop, and slurred speech. COMPARISON: 01/12/2018 FINDINGS: There is moderate to severe chronic ischemic disease throughout the cerebral white matter, with super imposed cavitary lacunar infarctions. No intracranial hemorrhage, mass effect, or midline shift. Th ere is prominence of the ventricular system. Decreased pneumatization of the bilateral mastoid air c ells is seen. No acute fluid level of the paranasal sinuses. IMPRESSION: 1. Moderate to severe microvascular ischemic disease with superimposed lacunar infarctions. 2. Ventriculomegaly. 3. No acute intracranial hemorrhage or mass effect. Case discussed with Dr. Bruce at 1150 hours, 05/13/2018. POS: [facility]
[2018-05-13 12:14] LABS: PTT 26.3 SEC (22.9-36.1); Prothrombin Time 13.6 SEC (12.0-14.7)
[2018-05-13 12:27] LABS: ALT (SGPT) 19 U/L (8-55); AST (SGOT) 20 U/L (5-34); Albumin 3.6 g/dL (3.4-4.8); Alkaline Phosphatase 109 U/L (40-150); Anion Gap 14 mmol/L (10-20); BUN (Urea Nitrogen) 21 mg/dL (8.4-25.7); Bilirubin, Total 0.7 mg/dL (0.2-1.2); CK (CPK) 173 U/L (30-200); Calc. Creatinine Clearance 0 mL/min (70-130); Calcium 9.2 mg/dL (7.8-10.44); Carbon Dioxide 22 mmol/L (23-31); Chloride 108 mmol/L (98-107); Estimated GFR-MDRD 58; Glucose 101 mg/dL (83-110); Protein, Total 6.6 g/dL (5.8-8.1); Sodium 140 mmol/L (136-145)
--- NOTE | 2018-05-13 13:14 | RAD ---
PORTABLE CHEST: Date: 05/13/18 HISTORY: Fell in bathroom. Diffuse pain. FINDINGS: Heart size is slightly enlarged. There are atherosclerotic changes of the aorta. Lungs are clear of a ny infiltrates. I do not see any signs of rib fractures. IMPRESSION: Minimal cardiomegaly. No acute findings. POS: [facility]
[2018-05-13] MEDS ORDERED: Aspirin 300 MG Suppository ONE (13:16)
[2018-05-13 15:32] LABS: Bilirubin Negative (Negative); Blood, Urine Negative (Negative); Clarity TURBID (Clear); Glucose, Urine (Dipstick) Negative (Negative); Leukocyte Negative (Negative); Nitrite Negative (Negative); Protein, Urine (Dipstick) Negative (Neg-Trace); Specific Gravity, Urine 1.019 (1.002-1.036); pH, Urine 7.5 (5.0-9.0)
[2018-05-13 17:35] VITALS: BMI 33.3
[2018-05-13] MEDS ORDERED: Ondansetron ODT 4 MG TAB PO PRN (19:52)
[2018-05-13] MEDS ORDERED: Ondansetron PF 4 MG/2 ML Vial IVP PRN (19:52)
[2018-05-13] MEDS ORDERED: Bisacodyl 10 MG SUPP PR PRN (19:52)
[2018-05-13] MEDS: busPIRone HCl 5 MG TAB PO SCH (21:10)
[2018-05-13] MEDS: Atorvastatin Calcium 40 MG TAB PO SCH (21:11)
[2018-05-13 21:16] LABS: Troponin I 0.016 ng/mL (< 0.028)
--- NOTE | 2018-05-13 21:30 | HP ---
CHIEF COMPLAINT: Fall in the restroom. HISTORY OF PRESENT ILLNESS: A 72-year-old male with multiple comorbidities including coronary artery disease, status post CABG; hypertension; obstructive sleep apnea; left-sided weakness from prior CVA, amongst others, who was brought in by EMS after he fell in his bathroom. The patient reportedly hit the head onto the shower. There was some concern by EMS about possible stroke. Hence, stroke alert was activated. The EMS has reported that the patient had left-sided facial droop as well as slurred speech. The patient was evaluated in the emergency room with CT, which was negative for acute stroke, which showed small vessel disease as well as lacunar infarcts, but due to the prior history of CVA with residual weakness, this tPA was not given in the emergency room, and the patient was admitted to the floor for further evaluation and treatment. On further questioning, the patient reported that in the last one month he has been developing worsening weakness of both lower extremities associated with gait instability, such that he had fallen three times prior to today. Difference today is that he was unable to get up, when he fell. The patient also reported that he had left-sided weakness from prior stroke as well as dysphagia and slurred speech from the prior stroke. He also reported anterior chest pain as well as worsening leg swelling. He denies fever, chills, nausea, vomiting, change in bowel habits, headache, change in vision, painful micturition, or bloody urine. PAST MEDICAL HISTORY: 1. Coronary artery disease, status post CABG. 2. Prior CVA with left-sided weakness. 3. Chronic systolic and diastolic heart failure with EF of 40% to 45%. 4. Obstructive sleep apnea. 5. Chronic kidney disease. 6. Dyslipidemia. 7. History of schizophrenia. 8. Peripheral vascular disease. 9. Prostate cancer. 10. COPD. 11. History of recurrent falls. PAST SURGICAL HISTORY: 1. CABG. 2. Left elbow repair. 3. Cholecystectomy. 4. Prostatectomy. 5. Skin cancer removal. 6. Pacemaker insertion. FAMILY HISTORY: The patient lives with his spouse. SOCIAL HISTORY: The patient is a former smoker. Does stopped about a year ago. He denied recreational drug or alcohol use. He is a . ALLERGIES: THE PATIENT REPORTS ALLERGY TO TETRACYCLINE, SULFONAMIDE, AND SULFA. HOME MEDICATIONS: These include the following, 1. Lasix 20 mg. 2. Finasteride 5 mg daily. 3. Risperidone 2 mg at bedtime. 4. Lipitor 80 mg daily. 5. Buspirone 5 mg b.i.d. 6. Carvedilol 12.5 mg b.i.d. 7. Aspirin 325 mg daily. 8. Fluoxetine 40 mg daily. REVIEW OF SYSTEMS: A 12-point review of system performed was negative, other than the pertinent positives and negatives included in the history of present illness. PHYSICAL EXAMINATION: VITAL SIGNS: Currently stands at BP 177/75, temperature 97.8, pulse 68, respiratory rate 18, and SpO2 96 on room air. GENERAL: Obese elderly male in no obvious distress. Afebrile. Anicteric. Acyanotic. HEENT: Normocephalic and atraumatic. Pupils are equal and reactive to light. Oral mucosa is moist. NECK: Supple and nontender. CARDIOVASCULAR: Regular rhythm and rate with normal heart sounds one and two. Bilateral leg edema noted. RESPIRATORY: Fair air entry bilateral with prolonged respiratory phase, as well as scattered transmitted sounds and few rhonchi. Work of breathing is not increased, and there is no obvious respiratory distress. GI: Abdomen is enlarged, full, soft, nontender, nondistended with normal bowel sounds. EXTREMITIES: Immediate fixed flexion contracture deformity of left medial two fingers noted. [place]-neck deformity involving the four fingers of right hand also noted. Bilateral leg edema with no erythema noted. NEUROLOGIC: Conscious, alert, oriented x3 with appropriate mental status. The patient has a residual dysphagia from prior stroke and this limited conversation. There is mild left-sided facial droop, but this may be related to a dental loss nature of the patient's mouth. The patient is able to move parts of the face and muscle tone seems bilaterally consistent with normal cranial nerves 2 through 12. Vision and visual luna are grossly intact. Power is 4/5 on the right upper limb, 3/5 on the left upper limb, and 3- both lower limbs. There is no involuntary movement. DIAGNOSTIC DATA: CMP showed sodium 140, potassium 4.0, chloride 108, CO2 22, BUN 21, creatinine 1.23, calcium 9.2, total bilirubin 0.7, AST 20, ALT 19, and alkaline phosphatase 109. Creatine kinase 173, total protein 6.6, albumin 3.6. Troponin was 0.017. CBC showed WBC count of 8.4, hemoglobin of 12.4, MCV of 95.4, and platelet of 191. Urinalysis was unremarkable with pH of 7.4 and specific gravity of 1.019, nitrite and leukocyte esterase were negative. Chest x-ray showed mild cardiomegaly with no acute finding. A CT scan of the brain without contrast showed ortmyapr-nq-hdgomr microvascular ischemic disease with superimposed lacunar infarcts. These are associated with ventriculomegaly, but there is no acute intracranial hemorrhage or mass effect. ASSESSMENT AND PLAN: 1. Fall. This most likely due to gait instability from physical deconditioning. However, acute cerebrovascular accident superimposed on residual weakness from prior cerebrovascular accident cannot be ruled out. The patient reported frequent falls and had fallen three times prior to this episode. 2. Possible acute cerebrovascular accident. 3. Recurrent falls. 4. Chest pain. The patient has coronary artery disease with history of prior coronary artery bypass graft. Initial troponin was negative. 5. Worsening bilateral leg swelling: This most likely due to [id number] systolic and diastolic heart failure. 6. Physical deconditioning. 7. Chronic obstructive pulmonary disease with no overt evidence of acute exacerbation. 8. Obstructive sleep apnea on CPAP. 9. Prior cerebrovascular accident with residual left-sided weakness. 10. History of schizophrenia. 11. Chronic kidney disease: This seems stable. 12. Prostate cancer, status post prostatectomy: No acute issues. PLAN OF TREATMENT: 1. We will start neuro checks. We will also continue Coreg and anti-platelets. 2. We will also continue patient's psychotropic medications. 3. We will get serial troponin to rule out acute myocardial infarction. 4. We will get BMP and start patient on increase Lasix dose and monitor I and O as well as daily weights. 5. We will also get an MRI to rule out acute cerebrovascular accident. 6. We will consult PT and OT for restorative therapy. 7. Deep vein thrombosis prophylaxis with Lovenox will be provided. 8. DuoNebs p.r.n. also will be provided. 9. Ethics: The patient wants to be made full code. Spouse is the surrogate decision maker. Job ID: [id number]
[2018-05-14] MEDS ORDERED: Nystatin Powder 15 GM BOT TOP PRN (03:37)
[2018-05-14 05:59] LABS: #Basophils 0.1 thou/uL (0.0-0.2); #Eosinphils 0.3 thou/uL (0.0-0.7); #Lymphocytes 1.3 thou/uL (1.20-3.40); #Monocytes 0.6 thou/uL (0.11-0.59); #Neutrophils 5.6 thou/uL (1.40-6.50); %Basophils 0.7 % (0.0-1.0); %Eosinophils 3.5 % (0.0-10.0); %Lymphocytes 16.6 % (21.0-51.0); %Monocytes 8.1 % (0.0-10.0); %Neutrophils 71.2 % (42.0-75.0); Hemoglobin 12.4 g/dL (14.0-18.0); Mean Corpuscular Hemoglobin 30.4 pg (27.0-31.0); Mean Corpuscular Volume 94.8 fL (78.0-98.0); Mean Platelet Volume 8.4 fL (7.4-10.4); Platelet Count 180 thou/uL (130-400); RBC Distribution Width 12.9 % (11.5-14.5); Red Blood Cell (RBC) Count 4.09 mill/uL (4.70-6.10); White Blood Cell (WBC) Count 7.9 thou/uL (4.8-10.8)
[2018-05-14 06:18] LABS: Anion Gap 13 mmol/L (10-20); BUN (Urea Nitrogen) 16 mg/dL (8.4-25.7); Calc. Creatinine Clearance 93 mL/min (70-130); Calcium 9.2 mg/dL (7.8-10.44); Carbon Dioxide 21 mmol/L (23-31); Cardiac Risk 2.7 (Less than 4.5); Chloride 108 mmol/L (98-107); Cholesterol 127 mg/dl (< 200 Desired); Estimated GFR-MDRD 69; Glucose 96 mg/dL (83-110); HDL Cholesterol 47 mg/dL (>60 Neg Risk); LDL Cholesterol, Calculated 59 mg/dL; Potassium 3.8 mmol/L (3.5-5.1); Sodium 138 mmol/L (136-145); Triglycerides 107 mg/dL (Less than 150)
[2018-05-14] MEDS: Carvedilol 6.25 MG TAB PO SCH (08:26)
[2018-05-14] MEDS: Finasteride 5 MG TAB PO SCH (08:26)
[2018-05-14] MEDS: FLUoxetine HCl 20 MG CAP PO SCH (08:26)
[2018-05-14] MEDS: Enoxaparin Sodium 40 MG/0.4 ML SYRINGE SC SCH (08:26)
[2018-05-14] MEDS: Furosemide 40 MG TAB PO SCH ×2 (08:27→14:38)
[2018-05-14] MEDS: Aspirin 325 mg Enteric Coated Tablet PO SCH (09:44)
[2018-05-14] MEDS: busPIRone HCl 5 MG TAB PO SCH ×2 (09:44→20:35)
--- NOTE | 2018-05-14 10:41 | PDOC.PN ---
- Subjective Encounter Start Date: 05/14/18 Encounter Start Time: 10:39 Subjective: 72 y/o with gait instability associated with recurrent falls admitted -: a fall in the bathroom. EMS has noted slurred speech and left facial droop -: concerning for acute stroke. Patient has baseline slurred speech /dysrthria No new problem. - Objective Resuscitation Status - Order Detail: 05/13/18 19:52 Resuscitation Status Routine Resuscitation Status: FULL: Full Resuscitation Vital Signs & Weight: Vital Signs (12 hours) Temp Pulse Pulse Pulse Resp BP BP 05/14/18 09:20 61 62 137/55 L 05/14/18 08:26 134/60 05/14/18 07:53 98.1 F 74 16 05/14/18 04:00 98.7 F 75 16 05/14/18 00:00 98.1 F 73 16 BP BP Pulse Ox 05/14/18 09:20 136/62 05/14/18 08:26 05/14/18 07:53 134/60 93 L 05/14/18 04:00 172/81 H 90 L 05/14/18 00:00 184/76 H 93 L Weight Weight 231 lb 11.2 oz I&O: 05/13/18 05/14/18 05/15/18 06:59 06:59 06:59 Intake Total 520 Balance 520 Result Diagrams: 05/14/18 05:40 05/14/18 05:40 Additional Labs: Accuchecks 05/13/18 11:48 POC Glucose 97 Phys Exam - Physical Examination HEENT: moist MMs edentulous Neck: no JVD, full ROM Respiratory: no wheezing, no rales fair air entry bilaterally. No distress Cardiovascular: RRR Gastrointestinal: soft, non-tender, no distention, positive bowel sounds Musculoskeletal: no edema, pulses present Conscious and alert. oriented x 3. dysarthria noted. said to be chronic. power 4/5 R and 4-/5 L upper limbs and 3/5 R amd 3-/5 L lower limb. Psychiatric: A&O x 3 Dx/Plan (1) Fall Code(s): W19.XXXA - UNSPECIFIED FALL, INITIAL ENCOUNTER Status: Acute Comment: Most likely due to physical deconditioning and gait instability. acute CVA unlikely. (2) Physical deconditioning Code(s): R53.81 - OTHER [place] Status: Acute (3) BPH (benign prostatic hyperplasia) Code(s): N40.0 - BENIGN PROSTATIC HYPERPLASIA WITHOUT LOWER URINRY TRACT SYMP Status: Chronic Qualifiers: Lower urinary tract symptom presence: symptoms present Lower urinary tract symptom detail: incomplete bladder emptying Qualified Code(s): N40.1 - Benign prostatic hyperplasia with lower urinary tract symptoms; R39.14 - Feeling of incomplete bladder emptying (4) CAD (coronary artery disease) Code(s): I25.10 - ATHSCL HEART DISEASE OF [place] CORONARY ARTERY W/O ANG PCTRS Status: Chronic Qualifiers: Coronary Disease-Associated Artery/Lesion type: [place] artery [place] vs. transplanted heart: [place] heart Associated angina: without angina Qualified Code(s): I25.10 - Atherosclerotic heart disease of [place] coronary artery without angina pectoris (5) CKD (chronic kidney disease), stage III Code(s): N18.3 - CHRONIC KIDNEY DISEASE, STAGE 3 (MODERATE) Status: Chronic (6) H/O: CVA (cerebrovascular accident) Code(s): Z86.73 - PRSNL HX OF TIA (TIA), AND CEREB INFRC W/O RESID DEFICITS Status: Chronic (7) HLD (hyperlipidemia) Code(s): E78.5 - HYPERLIPIDEMIA, UNSPECIFIED Status: Chronic Qualifiers: (8) HTN (hypertension) Code(s): I10 - ESSENTIAL (PRIMARY) HYPERTENSION Status: Chronic Qualifiers: (9) S/P CABG (coronary artery bypass graft) Code(s): Z95.1 - PRESENCE OF AORTOCORONARY BYPASS GRAFT Status: Chronic (10) Schizophrenia Code(s): F20.9 - SCHIZOPHRENIA, UNSPECIFIED Status: Chronic Qualifiers: Schizophrenia type: unspecified Qualified Code(s): F20.9 - Schizophrenia, unspecified (11) Systolic and diastolic CHF, chronic Code(s): I50.42 - CHRONIC COMBINED SYSTOLIC AND DIASTOLIC HRT FAIL Status: Chronic - Plan Continue Neurochecks. -: Awaiting MRI and echo. -: Continue PT/OT -: Continue current medications. -: Will need [facility] or acute rehab * .
[2018-05-14] MEDS: Atorvastatin Calcium 40 MG TAB PO SCH (20:34)
[2018-05-15] MEDS: busPIRone HCl 5 MG TAB PO SCH ×2 (08:48→20:57)
[2018-05-15] MEDS: Aspirin 325 mg Enteric Coated Tablet PO SCH (08:51)
[2018-05-15] MEDS: Finasteride 5 MG TAB PO SCH (08:51)
[2018-05-15] MEDS: FLUoxetine HCl 20 MG CAP PO SCH (08:52)
[2018-05-15] MEDS: Furosemide 40 MG TAB PO SCH ×2 (08:52→14:21)
[2018-05-15] MEDS: Carvedilol 6.25 MG TAB PO SCH (08:52)
[2018-05-15] MEDS: Enoxaparin Sodium 40 MG/0.4 ML SYRINGE SC SCH ×2 (10:06→10:23)
--- NOTE | 2018-05-15 10:46 | PRG ---
DATE OF SERVICE: 05/15/2018 SUBJECTIVE: The patient was seen and examined at bedside. He follows my commands. He is slow to respond, but he understands all my questions, and he is able to answer that. OBJECTIVE: VITAL SIGNS: Blood pressure is 132/62, pulse is 63, temperature is 99, respiratory rate is 16, and O2 saturation is 97% on room air. HEENT: His head is atraumatic and normocephalic. Sclerae are nonicteric. Pupils are responding to light properly. Oral mucosa is moist. NECK: Supple. LUNGS: Clear. HEART: S1, S2 normal. No S3. No S4. ABDOMEN: Soft, nontender. Bowel sounds are present. No organomegaly. EXTREMITIES: 1+ peripheral edema on both lower extremities. NEUROLOGIC: He is alert and oriented x3. He is dysarthric, but this seems to be chronic. He has bilateral upper and lower extremity weakness, more pronounced on the right side than on the left side. DIAGNOSTIC DATA: Echocardiogram showed LVEF of 30% to 35%, left atrium moderately dilated. AICD in place. Trace of mitral regurgitation, trace of tricuspid regurgitation, and mild pulmonic regurgitation. IMPRESSION: 1. Status post multiple falls, secondary to general deconditioning and extremities weakness. 2. Physical deconditioning. 3. History of cerebrovascular accident. 4. Chronic kidney disease, stage 3, chronic. 5. Hyperlipidemia. 6. Hypertension. 7. Status post coronary artery bypass grafting. 8. Coronary artery disease. 9. Schizophrenia. 10. Benign prostatic hyperplasia. 11. Systolic and diastolic congestive heart failure. PLAN: Plan is to continue his twice a day Lasix. MRI could not be done since he has AICD. We will continue PT and OT. We will arrange senior care facility for the PT or acute rehabilitation center. We will continue his current regimen. Job ID: [id number]
[2018-05-15] MEDS: Acetaminophen 325 MG TAB PO PRN (14:21)
[2018-05-15] MEDS: Atorvastatin Calcium 40 MG TAB PO SCH (20:57)
[2018-05-16] MEDS: Finasteride 5 MG TAB PO SCH (09:50)
[2018-05-16] MEDS: busPIRone HCl 5 MG TAB PO SCH ×2 (09:50→22:23)
[2018-05-16] MEDS: FLUoxetine HCl 20 MG CAP PO SCH (09:50)
[2018-05-16] MEDS: Aspirin 325 mg Enteric Coated Tablet PO SCH (09:51)
[2018-05-16] MEDS: Furosemide 40 MG TAB PO SCH ×2 (09:51→14:09)
[2018-05-16] MEDS: Acetaminophen 325 MG TAB PO PRN (09:51)
[2018-05-16] MEDS: Carvedilol 6.25 MG TAB PO SCH (09:51)
[2018-05-16] MEDS: Enoxaparin Sodium 40 MG/0.4 ML SYRINGE SC SCH (09:51)
--- NOTE | 2018-05-16 10:59 | PDOC.PN ---
- Subjective Encounter Start Date: 05/16/18 Encounter Start Time: 10:57 Subjective: left shoulder hurts post fall -: still very weak L leg - Objective Resuscitation Status - Order Detail: 05/13/18 19:52 Resuscitation Status Routine Resuscitation Status: FULL: Full Resuscitation MAR Reviewed: Yes Vital Signs & Weight: Vital Signs (12 hours) Temp Pulse Pulse Resp BP BP Pulse Ox 05/16/18 10:08 65 132/61 05/16/18 07:42 97.8 F 65 18 120/56 L 94 L 05/16/18 04:00 97.9 F 71 18 135/61 96 Weight Weight 229 lb 8 oz I&O: 05/15/18 05/16/18 05/17/18 06:59 06:59 06:59 Intake Total 1160 1452 Balance 1160 1452 Result Diagrams: 05/14/18 05:40 05/14/18 05:40 Phys Exam - Physical Examination Neck: no JVD Respiratory: clear to auscultation bilateral Cardiovascular: RRR, no significant murmur Gastrointestinal: soft, non-tender, positive bowel sounds Musculoskeletal: no edema weak leg on left Dx/Plan (1) Acute on chronic combined systolic and diastolic CHF (congestive heart failure) Code(s): I50.43 - ACUTE ON CHRONIC COMBINED SYSTOLIC AND DIASTOLIC HRT FAIL Status: Acute (2) Fall Code(s): W19.XXXA - UNSPECIFIED FALL, INITIAL ENCOUNTER Status: Acute Qualifiers: Encounter type: initial encounter Qualified Code(s): W19.XXXA - Unspecified fall, initial encounter Comment: Most likely due to physical deconditioning and gait instability. acute CVA unlikely. (3) BPH (benign prostatic hyperplasia) Code(s): N40.0 - BENIGN PROSTATIC HYPERPLASIA WITHOUT LOWER URINRY TRACT SYMP Status: Chronic Qualifiers: Lower urinary tract symptom presence: symptoms present Lower urinary tract symptom detail: incomplete bladder emptying Qualified Code(s): N40.1 - Benign prostatic hyperplasia with lower urinary tract symptoms; R39.14 - Feeling of incomplete bladder emptying (4) CAD (coronary artery disease) Code(s): I25.10 - ATHSCL HEART DISEASE OF [place] CORONARY ARTERY W/O ANG PCTRS Status: Chronic Qualifiers: Coronary Disease-Associated Artery/Lesion type: [place] artery [place] vs. transplanted heart: [place] heart Associated angina: without angina Qualified Code(s): I25.10 - Atherosclerotic heart disease of [place] coronary artery without angina pectoris (5) Schizophrenia Code(s): F20.9 - SCHIZOPHRENIA, UNSPECIFIED Status: Chronic Qualifiers: Schizophrenia type: unspecified Qualified Code(s): F20.9 - Schizophrenia, unspecified (6) Tobacco abuse Code(s): Z72.0 - TOBACCO USE Status: Chronic (7) CAD (coronary artery disease) Code(s): I25.10 - ATHSCL HEART DISEASE OF [place] CORONARY ARTERY W/O ANG PCTRS Status: Acute Qualifiers: Coronary Disease-Associated Artery/Lesion type: [place] artery [place] vs. transplanted heart: [place] heart Associated angina: without angina Qualified Code(s): I25.10 - Atherosclerotic heart disease of [place] coronary artery without angina pectoris (8) HTN (hypertension) Code(s): I10 - ESSENTIAL (PRIMARY) HYPERTENSION Status: Acute Qualifiers: Hypertension type: essential hypertension Qualified Code(s): I10 - Essential (primary) hypertension - Plan PT/OT cont ASA, statin -: cont coreg, proscas -: DC planning * .
[2018-05-16] MEDS: Atorvastatin Calcium 40 MG TAB PO SCH (22:23)
[2018-05-17] MEDS: Acetaminophen 325 MG TAB PO PRN (00:11)
--- NOTE | 2018-05-17 08:55 | PDOC.PN ---
- Subjective Encounter Start Date: 05/17/18 Encounter Start Time: 08:53 Subjective: fine - Objective Resuscitation Status - Order Detail: 05/13/18 19:52 Resuscitation Status Routine Resuscitation Status: FULL: Full Resuscitation MAR Reviewed: Yes Vital Signs & Weight: Vital Signs (12 hours) Temp Pulse Resp BP Pulse Ox 05/17/18 07:48 97.9 F 74 16 139/93 H 95 05/17/18 04:00 99.2 F 75 16 123/56 L 93 L 05/17/18 00:00 100.1 F H 79 18 110/63 94 L 05/16/18 22:20 97 Weight Weight 229 lb 8 oz I&O: 05/16/18 05/17/18 05/18/18 06:59 06:59 06:59 Intake Total 1452 600 Output Total 0 Balance 1452 600 Result Diagrams: 05/14/18 05:40 05/14/18 05:40 Phys Exam - Physical Examination Neck: no JVD Respiratory: clear to auscultation bilateral Cardiovascular: RRR, no significant murmur Gastrointestinal: soft, positive bowel sounds Musculoskeletal: edema present Dx/Plan (1) Acute on chronic combined systolic and diastolic CHF (congestive heart failure) Code(s): I50.43 - ACUTE ON CHRONIC COMBINED SYSTOLIC AND DIASTOLIC HRT FAIL Status: Acute (2) Fall Code(s): W19.XXXA - UNSPECIFIED FALL, INITIAL ENCOUNTER Status: Acute Qualifiers: Encounter type: initial encounter Qualified Code(s): W19.XXXA - Unspecified fall, initial encounter Comment: Most likely due to physical deconditioning and gait instability. acute CVA unlikely. (3) BPH (benign prostatic hyperplasia) Code(s): N40.0 - BENIGN PROSTATIC HYPERPLASIA WITHOUT LOWER URINRY TRACT SYMP Status: Chronic Qualifiers: Lower urinary tract symptom presence: symptoms present Lower urinary tract symptom detail: incomplete bladder emptying Qualified Code(s): N40.1 - Benign prostatic hyperplasia with lower urinary tract symptoms; R39.14 - Feeling of incomplete bladder emptying (4) CAD (coronary artery disease) Code(s): I25.10 - ATHSCL HEART DISEASE OF [place] CORONARY ARTERY W/O ANG PCTRS Status: Chronic Qualifiers: Coronary Disease-Associated Artery/Lesion type: [place] artery [place] vs. transplanted heart: [place] heart Associated angina: without angina Qualified Code(s): I25.10 - Atherosclerotic heart disease of [place] coronary artery without angina pectoris (5) Schizophrenia Code(s): F20.9 - SCHIZOPHRENIA, UNSPECIFIED Status: Chronic Qualifiers: Schizophrenia type: unspecified Qualified Code(s): F20.9 - Schizophrenia, unspecified (6) Tobacco abuse Code(s): Z72.0 - TOBACCO USE Status: Chronic (7) CAD (coronary artery disease) Code(s): I25.10 - ATHSCL HEART DISEASE OF [place] CORONARY ARTERY W/O ANG PCTRS Status: Acute Qualifiers: Coronary Disease-Associated Artery/Lesion type: [place] artery [place] vs. transplanted heart: [place] heart Associated angina: without angina Qualified Code(s): I25.10 - Atherosclerotic heart disease of [place] coronary artery without angina pectoris (8) HTN (hypertension) Code(s): I10 - ESSENTIAL (PRIMARY) HYPERTENSION Status: Acute Qualifiers: Hypertension type: essential hypertension Qualified Code(s): I10 - Essential (primary) hypertension (9) Cardiomyopathy Code(s): I42.9 - CARDIOMYOPATHY, UNSPECIFIED Status: Acute - Plan cont lasix, coreg, add lisinopril -: placement for PT/OT * .
[2018-05-17] MEDS ORDERED: LATANOPROST OP SCH (09:00)
[2018-05-17] MEDS ORDERED: Alfuzosin 10 MG TABDR...ER PO SCH (09:00)
[2018-05-17] MEDS ORDERED: Lisinopril 2.5 MG TAB PO SCH (09:00)
[2018-05-17 09:17] LABS: #Eosinphils 0.1 thou/uL (0.0-0.7); #Lymphocytes 0.4 thou/uL (1.20-3.40); #Monocytes 0.5 thou/uL (0.11-0.59); #Neutrophils 5.1 thou/uL (1.40-6.50); %Basophils 0.1 % (0.0-1.0); %Eosinophils 0.8 % (0.0-10.0); %Lymphocytes 6.6 % (21.0-51.0); %Monocytes 8.5 % (0.0-10.0); Hemoglobin 14.8 g/dL (14.0-18.0); Mean Corpuscular HGB CONC 32.5 g/dL (32.0-36.0); Mean Corpuscular Hemoglobin 30.4 pg (27.0-31.0); Mean Corpuscular Volume 93.5 fL (78.0-98.0); Mean Platelet Volume 8.3 fL (7.4-10.4); Platelet Count 189 thou/uL (130-400); RBC Distribution Width 12.8 % (11.5-14.5); Red Blood Cell (RBC) Count 4.86 mill/uL (4.70-6.10); White Blood Cell (WBC) Count 6.1 thou/uL (4.8-10.8)
[2018-05-17 09:33] LABS: ALT (SGPT) 20 U/L (8-55); AST (SGOT) 24 U/L (5-34); Albumin 3.6 g/dL (3.4-4.8); Alkaline Phosphatase 118 U/L (40-150); Anion Gap 14 mmol/L (10-20); BUN (Urea Nitrogen) 21 mg/dL (8.4-25.7); Bilirubin, Total 1.3 mg/dL (0.2-1.2); Calc. Creatinine Clearance 68 mL/min (70-130); Calcium 9.7 mg/dL (7.8-10.44); Carbon Dioxide 26 mmol/L (23-31); Chloride 100 mmol/L (98-107); Estimated GFR-MDRD 48; Globulin 3.8 g/dL (2.4-3.5); Glucose 104 mg/dL (83-110); Potassium 4.4 mmol/L (3.5-5.1); Protein, Total 7.4 g/dL (5.8-8.1); Sodium 136 mmol/L (136-145)
[2018-05-17] MEDS: Finasteride 5 MG TAB PO SCH (10:53)
[2018-05-17] MEDS: FLUoxetine HCl 20 MG CAP PO SCH (10:54)
[2018-05-17] MEDS: Carvedilol 6.25 MG TAB PO SCH (10:54)
[2018-05-17] MEDS: Furosemide 40 MG TAB PO SCH ×2 (10:55→15:34)
[2018-05-17] MEDS: Enoxaparin Sodium 40 MG/0.4 ML SYRINGE SC SCH (10:55)
[2018-05-17] MEDS: Aspirin 325 mg Enteric Coated Tablet PO SCH (10:55)
[2018-05-17] MEDS: busPIRone HCl 5 MG TAB PO SCH (11:03)
--- NOTE | 2018-05-17 11:16 | DIS ---
DATE OF ADMISSION: 05/13/2018 DATE OF DISCHARGE: 05/17/2018 PRIMARY CARE PHYSICIAN: Siva Reyna, DISCHARGE DISPOSITION: [facility]. FINAL DIAGNOSES: Acute on chronic combined systolic and diastolic heart failure, coronary artery disease, benign prostatic hypertrophy, fall, schizophrenia, tobacco abuse, hypertension, and cardiomyopathy. DISCHARGE MEDICATIONS: 1. Alfuzosin 10 mg a day. 2. Latanoprost 0.005 eye drops. 3. Finasteride 5 mg a day. 4. Prozac 40 mg a day. 5. Coreg 12.5 mg p.o. b.i.d. 6. BuSpar 5 mg p.o. b.i.d. 7. Lipitor 80 mg a day. 8. Lisinopril 2.5 mg a day. 9. DuoNeb 3 mL q.4 hours p.r.n. 10. Lasix 40 mg at 9 a.m. and 2 p.m. 11. Aspirin 325 mg a day. ALLERGIES: TETRACYCLINE AND SULFA. CODE STATUS: Full. PENDING AT TIME OF DISCHARGE: Nothing. DIET: Heart healthy. HOSPITAL COURSE: The patient was admitted to [facility] through [facility]. He had been brought in with a fall in the restroom. Diagnosis of acute on chronic systolic and diastolic heart failure was made, physical deconditioning, COPD with no evidence of acute exacerbation, schizophrenia, chronic kidney disease, stable. The patient was admitted, full code status. His chest x-ray showed some mild pulmonary vascular congestion, pacemaker in the right upper chest. CT scan of his brain showed no acute intracranial abnormality. Does have rqsiaesc-cu-yelinn microvascular disease. Echocardiogram revealed an EF of 30% to 35%. The patient was treated with IV diuresis, transitioned to p.o. His laboratory; CBC on discharge 6.1 white count, 14.8 hemoglobin, and 189,000 platelets. Comp metabolic profile is abnormal only for a creatinine 1.43, consistent with chronic kidney disease stage 3 which was present on admission. No consultations were obtained. No procedures were done. The patient's chest is clear. Blood pressure stable. He is being transferred to [facility] for deconditioning and PT/OT. His neurological exam is nonfocal. Job ID: [id number]
[2018-05-17 12:00] VITALS: TEMP 98.5
[2018-05-17 12:11] VITALS: BP 152/78
[2018-05-17] MEDS ORDERED: Latanoprost 0.005% Ophth Soln 2.5 ml Bottle EA EYE SCH (21:00)
== END 2018-05-17 16:14 | DRG 291 ==
LOC: ERS 11:43 → 2SE 15:06
PROVIDERS: ADMIT Internal Medicine Nephrology; ATTEND Internal Medicine Nephrology
DX: I13.0 Hypertensive heart and chronic kidney disease with heart failure and stage 1 through stage 4 chronic kidney disease, or unspecified chronic kidney disease (principal); I50.43 Acute on chronic combined systolic (congestive) and diastolic (congestive) heart failure; I69.354 Hemiplegia and hemiparesis following cerebral infarction affecting left non-dominant side; I25.10 Atherosclerotic heart disease of native coronary artery without angina pectoris; G47.33 Obstructive sleep apnea (adult) (pediatric); R29.810 Facial weakness; R47.81 Slurred speech; E78.5 Hyperlipidemia, unspecified; I73.9 Peripheral vascular disease, unspecified; J44.9 Chronic obstructive pulmonary disease, unspecified; R07.9 Chest pain, unspecified; F20.9 Schizophrenia, unspecified; R53.81 Other malaise; N40.1 Benign prostatic hyperplasia with lower urinary tract symptoms; R39.14 Feeling of incomplete bladder emptying; N18.3 Chronic kidney disease, stage 3 (moderate); M25.512 Pain in left shoulder; W19.XXXA Unspecified fall, initial encounter; I42.9 Cardiomyopathy, unspecified; F17.210 Nicotine dependence, cigarettes, uncomplicated; Y92.002 Bathroom of unspecified non-institutional (private) residence as the place of occurrence of the external cause; Z79.82 Long term (current) use of aspirin; Z88.2 Allergy status to sulfonamides; Z85.46 Personal history of malignant neoplasm of prostate; Z91.81 History of falling; Z85.828 Personal history of other malignant neoplasm of skin; Z90.79 Acquired absence of other genital organ(s); Z95.1 Presence of aortocoronary bypass graft; Z90.49 Acquired absence of other specified parts of digestive tract; Z95.0 Presence of cardiac pacemaker
CPT/HCPCS: 36415; 36416; 70450; 71045; 80048; 80053; 80061; 81003; 82550; 83880; 84484; 85025; 85610; 85730; 93306; J1650